=== PATIENT | female | born 1950 | race Caucasian/White ===

== ENCOUNTER 2019-09-24 19:27 | Inpatient (IN) | payer OTHER ==
[2019-09-24 20:03] VITALS: BMI 18.9
--- NOTE | 2019-09-24 20:54 | HP ---
CIWA Score Nausea/Vomitin-Mild Nausea/No Vomiting Muscle Tremors: 2 Anxiety: 3 Agitation: 2 Paroxysmal Sweats: 2 Orientation: 1-Uncertain about Date Tacttile Disturbances: 0-None Auditory Disturbances: 0-None Visual Disturbances: 0-None Headache: 2-Mild CIWA-Ar Total Score: 13 - Admission Criteria OASAS Guidelines: Admission for Medically Managed Detox: Requires at least one of the followin. CIWA greater than 12 2. Seizures within the past 24 hours 3. Delirium tremens within the past 24 hours 4. Hallucinations within the past 24 hours 5. Acute intervention needed for co occurring medical disorder 6. Acute intervention needed for co occurring psychiatric disorder 7. Severe withdrawal that cannot be handled at a lower level of care (continued vomiting, continued diarrhea, abnormal vital signs) requiring intravenous medication and/or fluids 8. Admitting History and Physical - Primary Care Physician PCP: none - Admission Chief Complaint: "I'm here for alcohol detox" History of Present Illness: A 68year old female who denies any medical history, was brought from [facility] to [facility] for alcohol detox. Pt states she drinks vodka 1/2 a pint daily but did not drink it today. Pt is mildly tremulous in b/l hands. Unable to other labs as pt had labs at [facility]. History Source: Patient Limitations to Obtaining History: No Limitations - Smoking History Smoking history: Former smoker Have you smoked in the past 12 months: No If you are a former smoker, when did you quit?: 17years ago - Alcohol/Substance Use Hx Alcohol Use: Yes History of Substance Use: reports: None - Social History Usual Living Arrangement: Yes: With Significant Other Do you think of yourself as: Straight/Heterosexual ADL: Independent History of Recent Travel: No Admission [facility] Allergies/Adverse Reactions: Allergies Allergy/AdvReac Type Severity Reaction Status Date / Time No Known Allergies Allergy Verified 09/24/19 19:55 Exam Limitations: No Limitations - Ebola screening Have you traveled outside of the country in the last 21 days: No (N) Have you had contact with anyone from an Ebola affected area: No Have you been sick,other than usual withdrawal symptoms: No Do you have a fever: No - Review of Systems Constitutional: Loss of Appetite, Night Sweats EENT: reports: Other (Uses eye glasses for reading/sight) Respiratory: reports: No Symptoms reported Cardiac: reports: No Symptoms Reported GI: reports: Nausea : reports: No Symptoms Reported Musculoskeletal: reports: No Symptoms Reported Integumentary: reports: No Symptoms Reported Neuro: reports: Headache, Tremors Endocrine: reports: No Symptoms Reported Hematology: reports: No Symptoms Reported Psychiatric: reports: No Sypmtoms Reported, Mood/Affect Appropiate Other Systems: Reviewed and Negative Patient History - Patient Medical History Hx Anemia: No Hx Asthma: No Hx Chronic Obstructive Pulmonary Disease (COPD): No Hx Cancer: No Hx Cardiac Disorders: No Hx Congestive Heart Failure: No Hx Hypertension: No Hx Hypercholesterolemia: No Hx Pacemaker: No HX Cerebrovascular Accident: No Hx Seizures: No Hx Dementia: No Hx Diabetes: No Hx Gastrointestinal Disorders: No Hx Liver Disease: No Hx Genitourinary Disorders: No Hx Sexually Transmitted Disorders: No Hx Renal Disease (ESRD): No Hx Thyroid Disease: No Hx Hepatitis C: No Hx Depression: No Hx Suicide Attempt: No Hx Bipolar Disorder: No Hx Schizophrenia: No - Patient Surgical History Past Surgical History: Yes Hx Abdominal Surgery: Yes (43years ago.) - PPD History Previous Implant?: Yes (pt states, she had one long time ago) Documented Results: Negative w/o proof PPD to be Administered?: Yes - Reproductive History Patient is a Female of Child Bearing Age (11 -55 yrs old): No - Smoking Cessation Smoking history: Former smoker Have you smoked in the past 12 months: No Hx Chewing Tobacco Use: No Initiated information on smoking cessation: No - Substance & Tx. History Hx Alcohol Use: Yes Hx Substance Use: No Substance Use Type: Alcohol - Substances abused Alcohol Substance route: Oral Frequency: Daily Amount used: half a pint of vodka Age of first use: 25 Date of last use: 09/23/19 Admission Physical Exam [facility] - Vital Signs Vital Signs: Vital Signs - 24 hr 09/24/19 19:54 Temperature 98.9 F Pulse Rate 109 H Respiratory 16 Rate Blood Pressure 160/104 H - Physical General Appearance: Yes: No Apparent Distress, Tremorous, Irritable, Sweating, Anxious HEENTM: Yes: EOMI, Hearing grossly Normal, Normal ENT Inspection, Normocephalic , Normal Voice, NITZA Respiratory: Yes: Chest Non-Tender, Lungs Clear, Normal Breath Sounds, No Respiratory Distress, No Accessory Muscle Use Breast: Yes: Breast Exam Deferred Cardiology: Yes: Regular Rhythm, Regular Rate, S1, S2 Abdominal: Yes: Normal Bowel Sounds, Non Tender, Soft Genitourinary: Yes: Within Normal Limits Musculoskeletal: Yes: full range of Motion, Other (Ambulates with a walker.) Extremities: Yes: Normal Capillary Refill, Normal Inspection, Normal Range of Motion, Non-Tender, Tremors Neurological: Yes: Within Normal Limits, Alert, Normal Mood/Affect, Normal Response Integumentary: Yes: Normal Color, Dry, Warm Lymphatic: Yes: Within Normal Limits - Diagnostic (1) Alcohol abuse Current Visit: Yes Status: Acute (2) Alcohol use disorder, mild, abuse Current Visit: Yes Status: Acute Cleared for Admission S - Detox or Rehab [facility] Level of Care: Medically Managed Detox Regimen/Protocol: Librium Claeared for Rehab Admission: No Breathalyzer - Breathalyzer Breathalyzer: 0 Urine Drug Screen - Test Device Lot number: [id number] Expiration date: 05/05/21 - Control Is test valid?: Yes - Results Drug screen NEGATIVE: No Urine drug screen results: BZO-Benzodiazepines Inpatient Rehab Admission - Rehab Decision to Admit Inpatient rehab admission?: No
[2019-09-24] MEDS ORDERED: METHOCARBAMOL 500 MG TABLET PO PRN (21:12)
[2019-09-24] MEDS ORDERED: MAGNESIUM CITRATE 300 ML BOTTLE PO PRN (21:12)
[2019-09-24] MEDS ORDERED: MAG HYDROX/AL HYDROX/SIMETH 30 ML UNIT-DOSE CUP PO PRN (21:12)
[2019-09-24] MEDS ORDERED: MENTHOL/PHENOL 1 EACH UD MM PRN (21:12)
[2019-09-24] MEDS ORDERED: ACETAMINOPHEN 325 MG TABLET (FP) PO PRN (21:12)
[2019-09-24] MEDS ORDERED: MAGNESIUM HYDROX 2400MG/30ML ORAL SUSPENSION 30 ML CUP PO PRN (21:12)
[2019-09-24] MEDS ORDERED: BISMUTH SUBSALICYLATE 524 MG/30 ML UD PO PRN (21:12)
[2019-09-24] MEDS ORDERED: ONDANSETRON *ODT* 4 MG TABLET SL PRN (21:12)
[2019-09-24] MEDS ORDERED: IBUPROFEN 400 MG TABLET (FP) PO PRN (21:12)
[2019-09-24] MEDS ORDERED: chlordiazePOXIDE HCL 10 MG CAPSULE PO PRN (21:24)
[2019-09-24] MEDS ORDERED: cloNIDine HCL 0.1 MG TABLET PO ONE (21:29)
[2019-09-24] MEDS: chlordiazePOXIDE HCL 25 MG CAPSULE PO SCH (22:30)
[2019-09-24] MEDS: THIAMINE HCL 100 MG TABLET (FP) PO SCH (22:31)
[2019-09-25] MEDS: chlordiazePOXIDE HCL 25 MG CAPSULE PO SCH ×3 (06:12→21:20)
[2019-09-25] MEDS: PRENATAL VITAMINS W/ FOLIC ACID TABLET (FP) PO SCH (11:18)
--- NOTE | 2019-09-25 13:35 | PN ---
S CIWA - CIWA Score Nausea/Vomitin-No Nausea/No Vomiting Muscle Tremors: 3 Anxiety: 3 Agitation: 3 Paroxysmal Sweats: 2 Orientation: 0-Oriented Tacttile Disturbances: 0-None Auditory Disturbances: 0-None Visual Disturbances: 0-None Headache: 0-None Present CIWA-Ar Total Score: 11 S Progress Note (SOAP) Subjective: anxiety sweats shakes interrupted sleep Objective: 09/25/19 13:33 Vital Signs Temperature 97.9 F 09/25/19 09:57 Pulse Rate 98 H 09/25/19 09:57 Respiratory Rate 18 09/25/19 09:57 Blood Pressure 113/82 09/25/19 09:57 O2 Sat by Pulse Oximetry (%) Laboratory Tests 09/24/19 21:50 POC Urine HCG, Qual Negative labs ordered aaox3 ambulating no acute distress Assessment: 09/25/19 13:34 withdrawals Plan: continue detox increase fluids
[2019-09-25] MEDS: hydrOXYzine PAMOATE 25 MG CAPSULE (FP) PO PRN (18:36)
[2019-09-25] MEDS: MELATONIN 5 MG TABLETS PO PRN (21:21)
[2019-09-25] MEDS: THIAMINE HCL 100 MG TABLET (FP) PO SCH (22:05)
[2019-09-26] MEDS: chlordiazePOXIDE 5 MG CAPSULE PO SCH ×3 (05:55→21:56)
[2019-09-26 09:29] LABS: BASO % 1.2 % (0-2.0); EOS % 10.2 % (0-4.5); HEMOGLOBIN 9.6 GM/dL (10.7-15.3); LYMPH % 19.9 % (8-40); MCH 30.6 pg (25.7-33.7); MCHC 33.3 g/dl (32.0-36.0); MEAN CELL VOLUME 91.8 fl (80-96); MEAN PLT VOLUME 7.6 fl (7.5-11.1); MONO % 13.3 % (3.8-10.2); NEUT % 55.4 % (42.8-82.8); PLATELET COUNT 228 K/MM3 (134-434); RBC 3.15 M/mm3 (3.60-5.2); RDW 15.7 % (11.6-15.6); WHITE BLOOD COUNT 4.2 K/mm3 (4.0-10.0)
[2019-09-26] MEDS: PRENATAL VITAMINS W/ FOLIC ACID TABLET (FP) PO SCH (10:50)
[2019-09-26 11:00] LABS: ALBUMIN 3.8 g/dl (3.4-5.0); BILIRUBIN,TOTAL 0.5 mg/dL (0.2-1); BLOOD UREA NITROGEN 30.8 mg/dL (7-18); CALCIUM 9.5 mg/dL (8.5-10.1); CREATININE 1.8 mg/dL (0.55-1.3); POTASSIUM 4.5 mmol/L (3.5-5.1); TOT PROT 7.4 g/dl (6.4-8.2)
--- NOTE | 2019-09-26 14:36 | EKG ---
Test Reason : Blood Pressure : / mmHG Vent. Rate : 084 BPM Atrial Rate : 084 BPM P-R Int : 162 ms QRS Dur : 078 ms QT Int : 384 ms P-R-T Axes : 023 -09 011 degrees QTc Int : 453 ms NORMAL SINUS RHYTHM NONSPECIFIC T WAVE ABNORMALITY ABNORMAL ECG NO PREVIOUS ECGS AVAILABLE Confirmed by NAYLA ASENCIO MD ([id number]) on 09/26/2019 2:36:30 PM Referred By: Iain Cunningham Confirmed By:NAYLA ASENCIO MD
--- NOTE | 2019-09-26 15:10 | PN ---
S CIWA - CIWA Score Nausea/Vomitin-Mild Nausea/No Vomiting Muscle Tremors: 2 Anxiety: 1-Mildly Anxious Agitation: 1-Slight > Activity Paroxysmal Sweats: 1-Minimal Palms Moist Orientation: 0-Oriented Tacttile Disturbances: 0-None Auditory Disturbances: 0-None Visual Disturbances: 0-None Headache: 1-Very Mild CIWA-Ar Total Score: 7 BHS Progress Note (SOAP) Subjective: pt here for alcohol detox- says detox is OK O: Vital Signs - 24 hr 09/25/19 09/25/19 09/26/19 18:25 21:08 00:30 Temperature 98.2 F 98.2 F Pulse Rate 100 H 92 H Respiratory 18 16 18 Rate Blood Pressure 117/64 115/74 09/26/19 09/26/19 09/26/19 08:13 11:01 14:00 Temperature 97.7 F 97.9 F 97.1 F L Pulse Rate 99 H 91 H 81 Respiratory 20 16 16 Rate Blood Pressure 112/77 99/69 120/76 Laboratory Tests 09/24/19 09/26/19 09/26/19 21:50 07:40 07:40 WBC 4.2 RBC 3.15 L Hgb 9.6 L Hct 29.0 L MCV 91.8 MCH 30.6 MCHC 33.3 RDW 15.7 H Plt Count 228 MPV 7.6 Absolute Neuts (auto) 2.3 Neutrophils % 55.4 Lymphocytes % 19.9 Monocytes % 13.3 H Eosinophils % 10.2 H Basophils % 1.2 Nucleated RBC % 0 Sodium Potassium Chloride Carbon Dioxide Anion Gap BUN Creatinine Est GFR (CKD-EPI)AfAm Est GFR (CKD-EPI)NonAf Random Glucose Calcium Total Bilirubin AST ALT Alkaline Phosphatase Total Protein Albumin POC Urine HCG, Qual Negative RPR Titer Nonreactive 09/26/19 07:40 WBC RBC Hgb Hct MCV MCH MCHC RDW Plt Count MPV Absolute Neuts (auto) Neutrophils % Lymphocytes % Monocytes % Eosinophils % Basophils % Nucleated RBC % Sodium 135 L Potassium 4.5 Chloride 98 Carbon Dioxide 28 Anion Gap 9 BUN 30.8 H Creatinine 1.8 H Est GFR (CKD-EPI)AfAm 32.94 Est GFR (CKD-EPI)NonAf 28.42 Random Glucose 91 Calcium 9.5 Total Bilirubin 0.5 AST 42 H ALT 31 Alkaline Phosphatase 86 Total Protein 7.4 Albumin 3.8 POC Urine HCG, Qual RPR Titer anemia, CRF- creatining 1.8 a/p: AUD- detox protocol
[2019-09-26] MEDS: THIAMINE HCL 100 MG TABLET (FP) PO SCH (22:37)
[2019-09-26] MEDS: MELATONIN 5 MG TABLETS PO PRN (22:37)
[2019-09-27] MEDS: chlordiazePOXIDE HCL 10 MG CAPSULE PO SCH ×3 (06:01→22:36)
[2019-09-27] MEDS: PRENATAL VITAMINS W/ FOLIC ACID TABLET (FP) PO SCH (11:03)
--- NOTE | 2019-09-27 14:07 | PN ---
S CIWA - CIWA Score Nausea/Vomitin-No Nausea/No Vomiting Muscle Tremors: None Anxiety: 2 Agitation: 0-Normal Activity Paroxysmal Sweats: 2 Orientation: 0-Oriented Tacttile Disturbances: 0-None Auditory Disturbances: 0-None Visual Disturbances: 0-None Headache: 0-None Present CIWA-Ar Total Score: 4 BHS Progress Note (SOAP) Subjective: c/o mild withdrawal symptoms. Objective: 09/27/19 14:06 Vital Signs 09/27/19 09/27/19 06:46 10:18 Temperature 97.9 F 99 F Pulse Rate 73 93 H Respiratory 18 18 Rate Blood Pressure 103/58 L 111/75 Laboratory Last Values WBC 4.2 K/mm3 (4.0-10.0) 09/26/19 07:40 RBC 3.15 M/mm3 (3.60-5.2) L 09/26/19 07:40 Hgb 9.6 GM/dL (10.7-15.3) L 09/26/19 07:40 Hct 29.0 % (32.4-45.2) L 09/26/19 07:40 MCV 91.8 fl (80-96) 09/26/19 07:40 MCH 30.6 pg (25.7-33.7) 09/26/19 07:40 MCHC 33.3 g/dl (32.0-36.0) 09/26/19 07:40 RDW 15.7 % (11.6-15.6) H 09/26/19 07:40 Plt Count 228 K/MM3 (134-434) 09/26/19 07:40 MPV 7.6 fl (7.5-11.1) 09/26/19 07:40 Absolute Neuts (auto) 2.3 K/mm3 (1.5-8.0) 09/26/19 07:40 Neutrophils % 55.4 % (42.8-82.8) 09/26/19 07:40 Lymphocytes % 19.9 % (8-40) 09/26/19 07:40 Monocytes % 13.3 % (3.8-10.2) H 09/26/19 07:40 Eosinophils % 10.2 % (0-4.5) H 09/26/19 07:40 Basophils % 1.2 % (0-2.0) 09/26/19 07:40 Nucleated RBC % 0 % (0-0) 09/26/19 07:40 Sodium 135 mmol/L (136-145) L 09/26/19 07:40 Potassium 4.5 mmol/L (3.5-5.1) 09/26/19 07:40 Chloride 98 mmol/L (98-107) 09/26/19 07:40 Carbon Dioxide 28 mmol/L (21-32) 09/26/19 07:40 Anion Gap 9 MMOL/L (8-16) 09/26/19 07:40 BUN 30.8 mg/dL (7-18) H 09/26/19 07:40 Creatinine 1.8 mg/dL (0.55-1.3) H 09/26/19 07:40 Est GFR (CKD-EPI)AfAm 32.94 09/26/19 07:40 Est GFR (CKD-EPI)NonAf 28.42 09/26/19 07:40 Random Glucose 91 mg/dL (74-106) 09/26/19 07:40 Calcium 9.5 mg/dL (8.5-10.1) 09/26/19 07:40 Total Bilirubin 0.5 mg/dL (0.2-1) 09/26/19 07:40 AST 42 U/L (15-37) H 09/26/19 07:40 ALT 31 U/L (13-61) 09/26/19 07:40 Alkaline Phosphatase 86 U/L (45-117) 09/26/19 07:40 Total Protein 7.4 g/dl (6.4-8.2) 09/26/19 07:40 Albumin 3.8 g/dl (3.4-5.0) 09/26/19 07:40 POC Urine HCG, Qual Negative 09/24/19 21:50 RPR Titer Nonreactive (NONREACTIVE) 09/26/19 07:40 Labs noted. Assessment: 09/27/19 14:06 AOX3, in no acute respiratory distress. Full ROM, ambulating in the unit. Mild Withdrawal symptoms. For d/c tomorrow. Plan: Continue dotox. D/C in AM.
[2019-09-27] MEDS ORDERED: ACETAMINOPHEN 325 MG TABLET (FP) PO PRN (17:07)
[2019-09-27] MEDS: hydrOXYzine PAMOATE 25 MG CAPSULE (FP) PO PRN (17:08)
[2019-09-27] MEDS: THIAMINE HCL 100 MG TABLET (FP) PO SCH (22:35)
[2019-09-28] MEDS ORDERED: chlordiazePOXIDE HCL 10 MG CAPSULE PO ONE (05:00)
--- NOTE | 2019-09-28 09:24 | DS ---
[facility] Detox Discharge Summary Admission Date: 09/24/19 Discharge Date: 09/28/19 - History Present History: Alcohol Dependence - Physical Exam Results Vital Signs: Vital Signs Temperature 97.7 F 09/28/19 05:25 Pulse Rate 88 09/28/19 05:25 Respiratory Rate 16 09/28/19 05:25 Blood Pressure 127/89 09/28/19 05:25 O2 Sat by Pulse Oximetry (%) - Treatment Hospital Course: Detox Protocol Followed, Detoxed Safely, Responded well, Discharged Condition Good, Rehab Referral Accepted Patient has Accepted a Rehab Referral to: referred to [facility] ot - Medication Discharge Medications: Ambulatory Orders NK [No Known Home Medication] 09/24/19 - Diagnosis (1) Alcohol use disorder, mild, abuse Current Visit: Yes Status: Chronic - AMA Did Patient Leave Against Medical Advice: No
[2019-09-28 09:31] VITALS: BP 113/73; PULSE 99; TEMP 97.6
[2019-09-28] MEDS: PRENATAL VITAMINS W/ FOLIC ACID TABLET (FP) PO SCH (10:22)
== END 2019-09-28 12:56 | disposition home or self-care (01) | DRG 897 ==
LOC: YASAS 19:27 → Y6N 21:46
PROVIDERS: ADMIT Allergy & Immunology; ATTEND Allergy & Immunology
PROC: HZ2ZZZZ Detoxification Services for Substance Abuse Treatment (ICD-10-PCS; principal; 2019-09-24)
DX: F10.230 Alcohol dependence with withdrawal, uncomplicated (principal); D64.9 Anemia, unspecified; N18.9 Chronic kidney disease, unspecified; Z87.891 Personal history of nicotine dependence
CPT/HCPCS: 36415; 80053; 81025; 85025; 86593; 93005; 93010; J0735

== ENCOUNTER 2019-10-09 15:20 | Inpatient (IN) | payer OTHER ==
[2019-10-09 16:30] VITALS: BMI 19.6
--- NOTE | 2019-10-09 17:12 | HP ---
CIWA Score Nausea/Vomitin-Mild Nausea/No Vomiting Muscle Tremors: 4-Moderate,w/Arms Extend Anxiety: 1-Mildly Anxious Agitation: 0-Normal Activity Paroxysmal Sweats: No Perspiration Orientation: 3-Disoriented Date>2 days Tacttile Disturbances: 0-None Auditory Disturbances: 0-None Visual Disturbances: 0-None Headache: 0-None Present CIWA-Ar Total Score: 9 - Admission Criteria OASAS Guidelines: Admission for Medically Managed Detox: Requires at least one of the followin. CIWA greater than 12 2. Seizures within the past 24 hours 3. Delirium tremens within the past 24 hours 4. Hallucinations within the past 24 hours 5. Acute intervention needed for co occurring medical disorder 6. Acute intervention needed for co occurring psychiatric disorder 7. Severe withdrawal that cannot be handled at a lower level of care (continued vomiting, continued diarrhea, abnormal vital signs) requiring intravenous medication and/or fluids 8. Patient presents the following: Acute intervention needed for co-occurring med or psych disorder (B/P: 172/103; 169/101) Admission Criteria Met: Admission criteria met Admitting History and Physical - Smoking History Smoking history: Former smoker Have you smoked in the past 12 months: No If you are a former smoker, when did you quit?: 17years ago - Alcohol/Substance Use Hx Alcohol Use: Yes History of Substance Use: reports: None - Social History ADL: Independent History of Recent Travel: No Admission [facility] Chief Complaint: Here to stop drinking. Allergies/Adverse Reactions: Allergies Allergy/AdvReac Type Severity Reaction Status Date / Time No Known Allergies Allergy Verified 10/09/19 16:15 History of Present Illness: 68 yo presents w/ alcohol use withdrawal seeking detox. Discharged on 09/28/19. States relapsed as soon as left. Frequent falls. Last 2 days ago. States r/t alcohol use. Alcohol use began at age 23. Currently drinks 1/2-1 pint daily. Last drink 2 days ago. PMHx: Denies HTN. EK/19: NSR w/nonspecific T wave abnormality. (Denies cocaine use.) RPR: 09/26: Nonreactive MMHx: Denies depression. Denies thoughts of harming self or others. Shx: Domiciled w/ . Retired. Denies legal issues. Patient Name: Lizzy Rankin Date: 1950 Address: [address] [place] [address] Sex: Female Rx Written Rx Dispensed Drug Quantity Days Supply Prescriber Name 09/02/2019 09/11/2019 chlordiazepoxide 25 mg capsule 9 3 Lali Alvarez Exam Limitations: No Limitations - Ebola screening Have you traveled outside of the country in the last 21 days: No Have you had contact with anyone from an Ebola affected area: No Have you been sick,other than usual withdrawal symptoms: Yes Do you have a fever: No - Review of Systems Constitutional: Unintentional Wgt. Loss EENT: reports: Blurred Vision, Dental Problems (Missing upper teeth. Chews and swallows ok) Respiratory: reports: No Symptoms reported Cardiac: reports: No Symptoms Reported GI: reports: Constipated (BM today - hard brown. No blood), Nausea : reports: No Symptoms Reported Musculoskeletal: reports: No Symptoms Reported Integumentary: reports: No Symptoms Reported Neuro: reports: Dizziness (Intermittent. Uses walker.) Endocrine: reports: No Symptoms Reported Hematology: reports: Anemia (Low iron) Psychiatric: reports: Anxious, Disorientated (Unsue of date/year/month. Knows self, president, location) Patient History - Patient Medical History Hx Anemia: No Hx Asthma: No Hx Chronic Obstructive Pulmonary Disease (COPD): No Hx Cancer: No Hx Cardiac Disorders: No Hx Congestive Heart Failure: No Hx Hypertension: No Hx Hypercholesterolemia: No Hx Pacemaker: No HX Cerebrovascular Accident: No Hx Seizures: No Hx Dementia: No Hx Diabetes: No Hx Gastrointestinal Disorders: No Hx Liver Disease: No Hx Genitourinary Disorders: No Hx Sexually Transmitted Disorders: No Hx Renal Disease (ESRD): No Hx Thyroid Disease: No Hx Hepatitis C: No Hx Depression: No Hx Suicide Attempt: No Hx Bipolar Disorder: No Hx Schizophrenia: No - Patient Surgical History Past Surgical History: Yes Hx Abdominal Surgery: Yes (43years ago.) - PPD History Previous Implant?: Yes Documented Results: Negative w/proof Implanted On Prior [facility] Admission?: Yes Date: 09/26/19 PPD to be Administered?: No - Smoking Cessation Smoking history: Former smoker Have you smoked in the past 12 months: No If you are a former smoker, when did you quit?: 17years ago Hx Chewing Tobacco Use: No Initiated information on smoking cessation: No - Substances abused Alcohol Substance route: Oral Frequency: Daily Amount used: half a pint of vodka Age of first use: 25 Date of last use: 10/07/19 Admission Physical Exam [facility] - Vital Signs Vital Signs: Vital Signs - 24 hr 10/09/19 16:15 Temperature 98.7 F Pulse Rate 100 H Respiratory 16 Rate Blood Pressure 169/101 H - Physical General Appearance: Yes: Mild Distress, Thin, Tremorous, Anxious HEENTM: Yes: EOMI, Hearing grossly Normal, Normocephalic, Normal Voice, NITZA, Pharynx Normal Respiratory: Yes: Lungs Clear (Pulse Ox = 98 %), Normal Breath Sounds, No Respiratory Distress Neck: Yes: No masses,lesions,Nodules, Supple Breast: Yes: Breast Exam Deferred Cardiology: Yes: Regular Rhythm, S1, S2, Tachycardia (HR: 106) Abdominal: Yes: Non Tender, Flat, Soft, Increased Bowel Sounds Genitourinary: Yes: Within Normal Limits Back: Yes: Within Normal Limits Musculoskeletal: Yes: full range of Motion, Gait Steady (with use of walker) Extremities: Yes: Normal Capillary Refill, Other (Periph pulses +; no edema) Neurological: Yes: trade marker II-XII NML intact, Motor Strength 5/5, Disoriented Integumentary: Yes: Normal Color, Dry, Warm Lymphatic: Yes: Within Normal Limits - Diagnostic (1) Alcohol dependence with withdrawal, uncomplicated Current Visit: Yes Status: Acute (2) Hypertension Current Visit: Yes Status: Acute Qualifiers: Hypertension type: unspecified Qualified Code(s): I10 - Essential (primary ) hypertension (3) Dizziness on standing Current Visit: Yes Status: Chronic (4) Walker as ambulation aid Current Visit: Yes Status: Chronic Cleared for Admission [facility] - Detox or Rehab [facility] Level of Care: Medically Managed Detox Regimen/Protocol: Librium Claeared for Rehab Admission: No Breathalyzer - Breathalyzer Breathalyzer: 0 Urine Drug Screen - Test Device Lot number: [id number] Expiration date: 05/06/21 - Control Is test valid?: Yes - Results Drug screen NEGATIVE: No Urine drug screen results: BZO-Benzodiazepines Inpatient Rehab Admission - Rehab Decision to Admit Inpatient rehab admission?: No
[2019-10-09] MEDS ORDERED: chlordiazePOXIDE HCL 10 MG CAPSULE PO ONE (17:49)
[2019-10-09] MEDS ORDERED: ACETAMINOPHEN 325 MG TABLET (FP) PO PRN ×2 (17:49)
[2019-10-09] MEDS ORDERED: BISMUTH SUBSALICYLATE 524 MG/30 ML UD PO PRN (17:49)
[2019-10-09] MEDS ORDERED: MELATONIN 5 MG TABLETS PO PRN (17:49)
[2019-10-09] MEDS ORDERED: IBUPROFEN 400 MG TABLET (FP) PO PRN (17:49)
[2019-10-09] MEDS ORDERED: MAGNESIUM HYDROX 2400MG/30ML ORAL SUSPENSION 30 ML CUP PO PRN (17:49)
[2019-10-09] MEDS ORDERED: MAGNESIUM CITRATE 300 ML BOTTLE PO PRN (17:49)
[2019-10-09] MEDS ORDERED: MENTHOL/PHENOL 1 EACH UD MM PRN (17:49)
[2019-10-09] MEDS ORDERED: chlordiazePOXIDE HCL 10 MG CAPSULE PO PRN (17:49)
[2019-10-09] MEDS ORDERED: MAG HYDROX/AL HYDROX/SIMETH 30 ML UNIT-DOSE CUP PO PRN (17:49)
[2019-10-09] MEDS ORDERED: cloNIDine HCL 0.1 MG TABLET PO ONE (18:30)
[2019-10-09] MEDS ORDERED: chlordiazePOXIDE 5 MG CAPSULE PO PRN (18:31)
[2019-10-09] MEDS ORDERED: THIAMINE HCL 100 MG TABLET (FP) PO SCH (22:00)
[2019-10-09] MEDS: chlordiazePOXIDE 5 MG CAPSULE PO SCH (22:16)
[2019-10-10] MEDS: chlordiazePOXIDE 5 MG CAPSULE PO SCH ×2 (05:54→12:55)
[2019-10-10 09:56] LABS: HEMATOCRIT 30.1 % (32.4-45.2); HEMOGLOBIN 10.1 GM/dL (10.7-15.3); MCH 30.5 pg (25.7-33.7); MCHC 33.4 g/dl (32.0-36.0); MEAN CELL VOLUME 91.2 fl (80-96); MEAN PLT VOLUME 7.7 fl (7.5-11.1); PLATELET COUNT 129 K/MM3 (134-434); WHITE BLOOD COUNT 3.8 K/mm3 (4.0-10.0)
[2019-10-10] MEDS ORDERED: PRENATAL VITAMINS W/ FOLIC ACID TABLET (FP) PO SCH (10:00)
[2019-10-10 10:06] LABS: ALBUMIN 3.9 g/dl (3.4-5.0); BILIRUBIN,TOTAL 0.9 mg/dL (0.2-1); BLOOD UREA NITROGEN 13.2 mg/dL (7-18); CALCIUM 9.2 mg/dL (8.5-10.1); POTASSIUM 3.3 mmol/L (3.5-5.1); TOT PROT 7.9 g/dl (6.4-8.2)
--- NOTE | 2019-10-10 12:29 | PN ---
[facility] CIWA - CIWA Score Nausea/Vomitin-No Nausea/No Vomiting Muscle Tremors: 2 Anxiety: 2 Agitation: 0-Normal Activity Paroxysmal Sweats: 3 Orientation: 0-Oriented Tacttile Disturbances: 1-Very Mild Itch/Numbness Auditory Disturbances: 0-None Visual Disturbances: 0-None Headache: 0-None Present CIWA-Ar Total Score: 8 S Progress Note (SOAP) Subjective: c/o sweats, headache, and anxiety, dizziness, and palpitations. Denies any chest pain, sob, or N/V. Objective: 10/10/19 12:23 Vital Signs 10/10/19 10/10/19 06:30 09:20 Temperature 99.1 F 98.8 F Pulse Rate 82 135 H Respiratory 16 16 Rate Blood Pressure 136/91 124/82 Lab Results WBC 3.8 K/mm3 (4.0-10.0) L 10/10/19 07:20 RBC 3.30 M/mm3 (3.60-5.2) L 10/10/19 07:20 Hgb 10.1 GM/dL (10.7-15.3) L 10/10/19 07:20 Hct 30.1 % (32.4-45.2) L 10/10/19 07:20 MCV 91.2 fl (80-96) 10/10/19 07:20 MCHC 33.4 g/dl (32.0-36.0) 10/10/19 07:20 RDW 16.0 % (11.6-15.6) H 10/10/19 07:20 Plt Count 129 K/MM3 (134-434) L D 10/10/19 07:20 Sodium 138 mmol/L (136-145) 10/10/19 07:20 Potassium 3.3 mmol/L (3.5-5.1) L 10/10/19 07:20 Chloride 102 mmol/L (98-107) 10/10/19 07:20 Carbon Dioxide 26 mmol/L (21-32) 10/10/19 07:20 Anion Gap 10 MMOL/L (8-16) 10/10/19 07:20 BUN 13.2 mg/dL (7-18) 10/10/19 07:20 Creatinine 1.0 mg/dL (0.55-1.3) 10/10/19 07:20 Random Glucose 106 mg/dL (74-106) 10/10/19 07:20 Calcium 9.2 mg/dL (8.5-10.1) 10/10/19 07:20 Labs noted with low K+ level of 3.3 Assessment: 10/10/19 12:24 AOX3 Full ROM Withdrawal symptoms. Hypokalemia. Tachycardia. HEENTM: EOMI, PERRLA Respiratory: Lungs Clear, Normal Breath Sounds, No Respiratory Distress Cardiology: Regular Rhythm, S1, S2, Tachycardia (HR: 130) Extremities: Normal Capillary Refill, Other (Periph pulses +; no edema) Plan: continue detox. Increase fluids. Potassium chloride 40meq po x8mecbb 4hrs apart. Send to [facility] ED for evaluation. Verbal report given to Dr. Petty.
[2019-10-10] MEDS ORDERED: POTASSIUM CHLORIDE TABS 20 MEQ TABLET.ER (FP) PO ONE ×2 (13:00→17:00)
[2019-10-10 13:43] VITALS: BP 152/98; PULSE 102; TEMP 97.6
[2019-10-11] MEDS ORDERED: chlordiazePOXIDE HCL 10 MG CAPSULE PO SCH (05:00)
[2019-10-12] MEDS ORDERED: chlordiazePOXIDE 5 MG CAPSULE PO PRN
[2019-10-12] MEDS ORDERED: chlordiazePOXIDE 5 MG CAPSULE PO SCH (05:00)
[2019-10-13] MEDS ORDERED: chlordiazePOXIDE 5 MG CAPSULE PO ONE (05:00)
== END 2019-10-10 21:29 | disposition short-term general hospital (02) | DRG 897 ==
LOC: YASAS 15:20 → Y3N 18:18
PROVIDERS: ADMIT Allergy & Immunology; ATTEND Allergy & Immunology
PROC: HZ2ZZZZ Detoxification Services for Substance Abuse Treatment (ICD-10-PCS; principal; 2019-10-09)
DX: F10.230 Alcohol dependence with withdrawal, uncomplicated (principal); I10 Essential (primary) hypertension; E87.6 Hypokalemia; R00.0 Tachycardia, unspecified; R29.6 Repeated falls; R26.2 Difficulty in walking, not elsewhere classified; Z99.89 Dependence on other enabling machines and devices; Z87.891 Personal history of nicotine dependence
CPT/HCPCS: 36415; 80053; 85027; J0735

== ENCOUNTER 2019-10-10 13:55 | Observation (INO) | payer SELFPAY ==
--- NOTE | 2019-10-10 14:41 | PDOC ---
Attending Attestation - Resident Resident Name: Domenico Colon - ED Attending Attestation I have performed the following: I have examined & evaluated the patient, The case was reviewed & discussed with the resident, I agree w/resident's findings & plan, Exceptions are as noted - HPI HPI: 10/10/19 14:37 68y F htn, was at [facility] for etoh detox, brought in for evaluation for dizziness/palpitation. The patient notes that on Saturday she was feeling well she was putting away groceries when she suddenly felt lightheaded and syncopized , she was brought to [facility] for evaluation and then discharge to [facility] for alcohol detox. Patient states last time she drank alcohol was on Saturday. While at detox she while she was eating lunch she remembers feeling very lightheaded and her vision darkening. Per [facility] records the patient was immediately evaluated was noted to be tachycardic to 135, with a normal blood sugar. The patient denies any associated pain associated with these syncopal episodes including any headache, chest pain, shortness of breath, abdominal pain , back pain, neck pain, focal numbness, tingling, weakness. Patient denies any fever, chills, cough, diarrhea, melena, dysuria. Physical exam GENERAL: The patient is awake, alert, and fully oriented, Nontoxic - in no acute distress. HEAD: Normocephalic, atraumatic. EYES: extraocular movements intact, sclera anicteric, conjunctiva clear. ENT: Normal voice, Moist mucous membranes. NECK: Normal range of motion, supple LUNGS: Breath sounds equal, clear to auscultation bilaterally. No wheezes, no rhonchi, no rales. HEART: Regular rate and rhythm, normal S1 and S2 without murmur, rub or gallop. ABDOMEN: Soft, nontender, No guarding, no rebound. No CVA tenderness EXTREMITIES: Normal range of motion, no edema. NEUROLOGICAL: No facial assymetry, Normal speech, normal symmetric movement of upper and lower extremities, sensation grossly intact PSYCH: Normal mood, normal affect. SKIN: Warm, Dry, normal turgor, a&p 68y F hx of htn, etoh abuse presents with complaint presyncope/syncope x 2 ddx includes possible anemia, metabolic derangement, arryuthmia, acs will ck labs, cxr, ua,e kg will place pt on cardaic monitor due to syncope x 2, will keep pt for observation syncope, will obtain echo - Physicial Exam PE: 10/12/19 19:20 see above - Medical Decision Making 10/12/19 19:20 see above Heart Score/ECG Review - ECG Impressions Comment:: 10/10/19 15:11 Twelve-lead EKG was performed and reviewed by me. There is normal sinus rhythm with a heart rate of 93 The axis is normal. The intervals are normal. There is normal R wave progression There are no ST or T wave abnormalities. Impression: Normal twelve-lead EKG
[2019-10-10] MEDS ORDERED: SODIUM CHLORIDE 1,000 ML IV ONE (14:51)
--- NOTE | 2019-10-10 15:10 | PDOC ---
History of Present Illness - General Chief Complaint: Irregular Heart Beat Stated Complaint: PALPITATIONS Time Seen by Provider: 10/10/19 14:01 - History of Present Illness Initial Comments: 10/10/19 23:50 68F PMH HTN BIBEMS from [facility] for an episode of lightheadedness and visual darkening while eating. Episode lasted about 5 seconds and resolved, associated w/ nausea. Pt currently asymptomatic w/o visual changes or hearing changes. Denies chest pain, palpitations, sob, f/c, cough, abd pain. Denies numbness, tingling, focal weakness. Pt has had a similar episode on Saturday where she syncopized and was eval'd at [facility]. Subsequently sent to [facility] for etoh detox, last drink Saturday, currently on librium. NKDA No PCP Pt lives at home in the [place] Former smoker, denies drug use Past History - Past Medical History Allergies/Adverse Reactions: Allergies Allergy/AdvReac Type Severity Reaction Status Date / Time No Known Allergies Allergy Verified 10/10/19 14:16 Home Medications: Ambulatory Orders NK [No Known Home Medication] 09/24/19 Anemia: No Asthma: No Cancer: No Cardiac Disorders: No CVA: No COPD: No CHF: No Dementia: No Diabetes: No GI Disorders: No Disorders: No HTN: No Hypercholesterolemia: No Kidney Stones: No Liver Disease: No Seizures: No Thyroid Disease: No - Surgical History Abdominal Surgery: Yes (43years ago.) Appendectomy: No Cardiac Surgery: No Cholecystectomy: No Lung Surgery: No Neurologic Surgery: No Orthopedic Surgery: No - Immunization History Immunization Up to Date: Yes - Psycho Social/Smoking Cessation Hx Smoking History: Former smoker Have you smoked in the past 12 months: No If you are a former smoker, when did you quit?: 17 yrs Information on smoking cessation initiated: No Hx Alcohol Use: Yes Drug/Substance Use Hx: No Substance Use Type: Alcohol Hx Substance Use Treatment: No Review of Systems - Review of Systems Able to Perform ROS?: Yes Comments:: 10/10/19 23:50 CONSTITUTIONAL: Denies F / C HEENT: Endorses lightheadedness. Denies headache, changes in vision / hearing, diplopia, blurry vision RESP: Denies SOB, cough CARD: Denies chest pain, palpitations GI: Endorsed since resolved nausea. Denies V / D, abdominal pain, bloody stool, inability to tolerate PO : Denies dysuria, hematuria, frequency SKIN: Denies rashes NEURO: Denies numbness, tingling, weakness Is the patient limited Upper Sorbian proficient: No *Physical Exam - Vital Signs Last Vital Signs Temp Pulse Resp BP Pulse Ox 97.4 F L 95 H 18 148/87 100 10/10/19 14:11 10/10/19 14:11 10/10/19 14:11 10/10/19 14:11 10/10/19 14:11 - Physical Exam 10/10/19 23:50 GEN: Well appearing, NAD, comfortable. AAOx3 HEENT: NC/AT, CN II-XII grossly intact, EOMI, PERRLA. No facial asymmetry. Moist mucous membranes. Normal voice. Supple neck w/ FROM, no midline TTP. CV: S1/S2, RRR, no m/r/g LUNG: CTAB, no wheezes, crackles, rales, rhonchi. GI: soft, ndnt, +BS, no guarding, no rebound. No masses. EXTREMITIES: No obvious deformities of all extremities. SKIN: warm, dry, normal turgor PSYCH: normal mood and affect NEURO: Moving all extremities well. 5/5 UE strength b/l. 5/5 LE strength b/l. Sensation symmetric and intact throughout. No ataxia on FTN. No pronator drift. BACK: No obvious deformities, no step offs, no midline TTP. There is no pelvic instability. No signs of trauma. ED Treatment Course - LABORATORY CBC & Chemistry Diagram: 10/10/19 14:57 10/10/19 14:57 Medical Decision Making - Medical Decision Making 10/10/19 14:54 68F PMH HTN BIBEMS from [facility] (etoh detox) for lightheadedness and visual darkening w/o syncope. ROS largely negative. Benign exam. Likely pre-syncope will w/o arrhythmia, lytes, anemia - cbc, cmp, cardiac - ekg - cxr - echo Pt had CBC in AM w/o anemia 10/10/19 16:50 labs reviewed CXR by ED team appears w/o acute pathology given 2 recent episodes of syncope / near-syncope would like to keep for further workup tele-obs 10/10/19 16:57 admitted tele-obs 10/10/19 17:27 spoke to [facility] ED - pt was in ED on 10/08/18, agitated given ativan discharged to [facility], no echo was obtained, discharged 10/09/18. Discharge - Discharge Information Problems reviewed: Yes Clinical Impression/Diagnosis: Syncope Qualifiers: Syncope type: unspecified Qualified Code(s): R55 - Syncope and collapse Condition: Stable - Admission Yes - Follow up/Referral - Patient Discharge Instructions - Post Discharge Activity
[2019-10-10 15:21] LABS: BASO % 0.6 % (0-2.0); HEMATOCRIT 29.4 % (32.4-45.2); HEMOGLOBIN 9.9 GM/dL (10.7-15.3); LYMPH % 10.6 % (8-40); MCH 30.2 pg (25.7-33.7); MCHC 33.6 g/dl (32.0-36.0); MEAN CELL VOLUME 90.1 fl (80-96); MEAN PLT VOLUME 7.4 fl (7.5-11.1); MONO % 7.7 % (3.8-10.2); NEUT % 76.1 % (42.8-82.8); PLATELET COUNT 133 K/MM3 (134-434); RBC 3.26 M/mm3 (3.60-5.2); RDW 15.8 % (11.6-15.6); WHITE BLOOD COUNT 5.9 K/mm3 (4.0-10.0)
[2019-10-10 15:52] LABS: ALBUMIN 4.2 g/dl (3.4-5.0); BILIRUBIN,TOTAL 0.9 mg/dL (0.2-1); BLOOD UREA NITROGEN 15.4 mg/dL (7-18); CALCIUM 9.5 mg/dL (8.5-10.1); POTASSIUM 3.7 mmol/L (3.5-5.1); TOT PROT 8.2 g/dl (6.4-8.2)
--- NOTE | 2019-10-10 17:31 | HP ---
CHIEF COMPLAINT: Dizziness, palpitations PCP: N/A HISTORY OF PRESENT ILLNESS: Patient is a 68 year old female who denies significant medical history presents from [facility] with complaint of dizziness, palpitations occurring earlier this afternoon. Patient was sitting, about to eat her lunch when she exprienced the symptoms without clear inciting factor. Patient endorses similar symptoms that occurred this past Saturday causing her to fall, and lose consciousness as she was placing groceries into a cabinet at home. At that time she endorsed preceding palpitations, dizziness, shortness of breath, and chest pressure she described as a "punch to the chest". Denies bowl or bladder incontinence. She estimates that she was on the ground for approx 8 minutes, before getting up. Patient states she was taken to [facility]. Per ED sign out, patient was discharged from [facility] yesterday, and did not have syncopal work up performed. Patient admits the symptoms of dizziness ongoing for the past two months. Denies palliative features. Currently states she feels well. Currently denies chest pain, palpitations, abdominal pain, nausea, vomiting, diarrhea, melena, hematochezia, dysuria, hematuria. ER course was notable for: (1) EKG normal sinus rhythm at 93BPM. Initial troponin 0,02 (2) Chest radiograph negative for acute infiltrate (3) Recent Travel: denies PAST MEDICAL HISTORY: denies PAST SURGICAL HISTORY: section Social History: Smoking: Former smoker, quit 17 years ago Alcohol: admits 0.5 pint of Vodka daily Drugs: denies Allergies No Known Allergies Allergy (Verified 10/10/19 14:16) HOME MEDICATIONS: Home Medications Medication Instructions Recorded NK [No Known Home Medication] 09/24/19 REVIEW OF SYSTEMS CONSTITUTIONAL: Absent: fever, chills, diaphoresis, generalized weakness, malaise, loss of appetite, weight change HEENT: Absent: rhinorrhea, nasal congestion, throat pain, throat swelling, difficulty swallowing, mouth swelling, ear pain, eye pain, visual changes CARDIOVASCULAR: Admits: chest pressure (resolved), palpitations, lightheadedness (improving). Absent: chest pain, syncope, palpitations, irregular heart rate, lightheadedness , peripheral edema RESPIRATORY: Admits: shortness of breath (improving). Absent: cough, dyspnea with exertion, orthopnea, wheezing, stridor, hemoptysis GASTROINTESTINAL: Absent: abdominal pain, abdominal distension, nausea, vomiting, diarrhea, constipation, melena, hematochezia GENITOURINARY: Absent: dysuria, frequency, urgency, hesitancy, hematuria, flank pain, genital pain MUSCULOSKELETAL: Absent: myalgia, arthralgia, joint swelling, back pain, neck pain SKIN: Absent: rash, itching, pallor HEMATOLOGIC/IMMUNOLOGIC: Absent: easy bleeding, easy bruising, lymphadenopathy, frequent infections ENDOCRINE: Absent: unexplained weight gain, unexplained weight loss, heat intolerance, cold intolerance NEUROLOGIC: Absent: headache, focal weakness or paresthesias, dizziness, unsteady gait, seizure, mental status changes, bladder or bowel incontinence PSYCHIATRIC: Absent: anxiety, depression, suicidal or homicidal ideation, hallucinations. PHYSICAL EXAMINATION Vital Signs - 24 hr 10/10/19 10/10/19 14:11 15:40 Temperature 97.4 F L Pulse Rate 95 H Respiratory 18 Rate Blood Pressure 148/87 O2 Sat by Pulse 100 98 Oximetry (%) GENERAL: Awake, alert, and fully oriented, in no acute distress. HEAD: Normal with no signs of trauma. EYES: Pupils equal, round and reactive to light, extraocular movements intact, sclera anicteric, conjunctiva clear. No lid lag. EARS, NOSE, THROAT: Ears normal, nares patent, oropharynx clear without exudates. Moist mucous membranes. NECK: Normal range of motion, supple without lymphadenopathy, JVD, or masses. LUNGS: Breath sounds equal, clear to auscultation bilaterally. No wheezes, and no crackles. No accessory muscle use. HEART: Regular rate and rhythm, normal S1 and S2 without murmur, rub or gallop. ABDOMEN: Soft, nontender, not distended, normoactive bowel sounds, no guarding, no rebound, no masses. No hepatomegaly or splenomegaly. MUSCULOSKELETAL: Normal range of motion at all joints. No bony deformities or tenderness. No CVA tenderness. UPPER EXTREMITIES: 2+ pulses, warm, well-perfused. No cyanosis. No clubbing. No peripheral edema. LOWER EXTREMITIES: 2+ pulses, warm, well-perfused. No calf tenderness. No peripheral edema. NEUROLOGICAL: Cranial nerves II-XII intact. Normal speech. Normal gait. PSYCHIATRIC: Cooperative. Good eye contact. Appropriate mood and affect. SKIN: Warm, dry, normal turgor, no rashes or lesions noted, normal capillary refill. Laboratory Results - last 24 hr 10/10/19 10/10/19 10/10/19 14:57 14:57 14:57 WBC 5.9 RBC 3.26 L Hgb 9.9 L Hct 29.4 L MCV 90.1 MCH 30.2 MCHC 33.6 RDW 15.8 H Plt Count 133 L MPV 7.4 L Absolute Neuts (auto) 4.5 Neutrophils % 76.1 D Lymphocytes % 10.6 D Monocytes % 7.7 Eosinophils % 5.0 H Basophils % 0.6 Nucleated RBC % 0 Sodium 137 Potassium 3.7 Chloride 102 Carbon Dioxide 27 Anion Gap 7 L BUN 15.4 Creatinine 1.0 Est GFR (CKD-EPI)AfAm 67.04 Est GFR (CKD-EPI)NonAf 57.84 Random Glucose 102 Calcium 9.5 Total Bilirubin 0.9 AST 46 H ALT 29 Alkaline Phosphatase 104 Creatine Kinase 121 Troponin I < 0.02 Total Protein 8.2 Albumin 4.2 ASSESSMENT/PLAN: Patient is a 68 year old female who denies significant medical history presents from [facility] with complaint of dizziness, palpitations occurring earlier this afternoon. Pre-syncopal episode -Dizziness, palpitations ongoing for past two months. Denies fall today (no trauma documented per [facility] facility notes). Neurologic exam nonfocal. -Telemetry monitoring -EKG reveals normal sinus rhythm at 93BPM. Initial troponin 0,02 -Cardiology evaluation (Dr. Conroy) -STAT orthostatic vital signs -Cardiac transthoracic ECHO -Carotid duplex ultrasound -Fall precautions Alcohol use disorder -Endorses last alcoholic drink Saturday. Currently CIWA = 0. -Will monitor off benzodiazepines for now. If CIWA > 6 will administer Ativan 2mg IV, and reinstate Librium protocol. -Thiamine 100mg PO daily -Folic Acid 1mg PO daily -Multivitamin daily -IV normal saline with Folate, Thiamine FEN -IV normal saline with Folate, Thiamine at 125mL/ hour -Follow BMP -Regular diet Prophylaxis -Lovenox 40mg subq daily Disposition -Telemetry observation Visit type - Emergency Visit Emergency Visit: Yes ED Registration Date: 10/10/19 Care time: The patient presented to the Emergency Department on the above date and was hospitalized for further evaluation of their emergent condition. - New Patient This patient is new to me today: Yes Date on this admission: 10/10/19 - Critical Care Critical Care patient: No ATTENDING PHYSICIAN STATEMENT I saw and evaluated the patient. I reviewed the resident's note and discussed the case with the resident. I agree with the resident's findings and plan as documented. SUBJECTIVE: OBJECTIVE: ASSESSMENT AND PLAN:
[2019-10-10] MEDS ORDERED: FOLIC ACID INJECTION - 1 MG, THIAMINE HCL 100 MG, MULTIVIT INJECTION ADULT 10 ML in SOD... IVPB ONE (17:46)
[2019-10-10] MEDS ORDERED: LORazepam 2 MG/ML SDV VIAL IVPUSH ONE (18:00)
--- NOTE | 2019-10-10 18:05 | PN ---
Teaching Attending Note Name of Resident: Chris Castillo ATTENDING PHYSICIAN STATEMENT I saw and evaluated the patient. I reviewed the resident's note and discussed the case with the resident. I agree with the resident's findings and plan as documented. SUBJECTIVE: Feeling well now. No CP/palpitations/lightheadedness/visual disturbance/nausea/vomiting currently. OBJECTIVE: Afebrile, Hemodynamically Stable. Last Vital Signs Temp Pulse Resp BP Pulse Ox 97.4 F L 95 H 18 148/87 98 10/10/19 14:11 10/10/19 14:11 10/10/19 14:11 10/10/19 14:11 10/10/19 15:40 HEENT - Atraumatic, Normocephalic. Heart - S1, S2, SM Lungs - clear to auscultation Abdomen - Soft, non-tender. Bowel Sounds normal. Extremities - no edema, no calf tenderness. Maximino - AAO x 3. Tone/Power normal all extremities. Laboratory Results - last 24 hr 10/10/19 10/10/19 10/10/19 14:57 14:57 14:57 WBC 5.9 RBC 3.26 L Hgb 9.9 L Hct 29.4 L MCV 90.1 MCH 30.2 MCHC 33.6 RDW 15.8 H Plt Count 133 L MPV 7.4 L Absolute Neuts (auto) 4.5 Neutrophils % 76.1 D Lymphocytes % 10.6 D Monocytes % 7.7 Eosinophils % 5.0 H Basophils % 0.6 Nucleated RBC % 0 Sodium 137 Potassium 3.7 Chloride 102 Carbon Dioxide 27 Anion Gap 7 L BUN 15.4 Creatinine 1.0 Est GFR (CKD-EPI)AfAm 67.04 Est GFR (CKD-EPI)NonAf 57.84 Random Glucose 102 Calcium 9.5 Total Bilirubin 0.9 AST 46 H ALT 29 Alkaline Phosphatase 104 Creatine Kinase 121 Troponin I < 0.02 Total Protein 8.2 Albumin 4.2 Current Medications Generic Name Dose Route Start Last Admin Trade Name Freq PRN Reason Stop Dose Admin Enoxaparin Sodium 40 mg 10/11/19 10:00 Lovenox - SQ DAILY CHRISTAL Folic Acid 1 mg 10/11/19 10:00 Folic Acid - PO DAILY CHRISTAL Folic Acid 1 mg/ Thiamine HCl 1,000 mls @ 125 mls/hr 10/10/19 17:46 100 mg/ Multivitamins/Minerals IVPB 10/11/19 01:45 10 ml/ Sodium Chloride ONCE ONE Lorazepam 2 mg 10/10/19 18:00 Ativan Injection - IVPUSH 10/10/19 18:01 PRN ONE Multivitamins/Minerals/Vitamin C 1 tab 10/11/19 10:00 Tab-A-Vit - PO DAILY CHRISTAL Thiamine HCl 100 mg 10/11/19 10:00 Vitamin B1 - PO DAILY CHRISTAL Home Medications Medication Instructions Recorded NK [No Known Home Medication] 09/24/19 ASSESSMENT AND PLAN: 68 year old female with history of Alcohol Abuse, transferred from [facility] ( where she was undergoing Alcohol detox) for complaints of tachycardia, palpitations, lightheadedness. Patient reports 2 recent syncopal events associated with palpitations and lightheadedness, last 10/06/19. 1. Pre-Syncopal Symptoms, prior Syncope ECG - NSR rate 93, non-specific T wave inversion. Telemonitoring. Echo requested Carotid Duplex requested Cardiology eval. No focal or lateralizing neurological signs, no need for CT Head. PT 2. Hx Alcohol Excess No evidence of alcohol withdrawal at this time. Will give Ativan PRN MVI, Thiamine, Folate DVT Px - Lovenox SQ
[2019-10-10] MEDS ORDERED: LORazepam 2 MG/ML SDV VIAL ONE (19:51)
[2019-10-10 22:01] VITALS: BMI 19.3
[2019-10-11] MEDS ORDERED: LORazepam 2 MG/ML SDV VIAL IVPUSH ONE (01:00)
[2019-10-11 06:30] LABS: HEMATOCRIT 29.6 % (32.4-45.2); MCH 30.6 pg (25.7-33.7); MCHC 33.9 g/dl (32.0-36.0); MEAN CELL VOLUME 90.5 fl (80-96); MEAN PLT VOLUME 7.5 fl (7.5-11.1); PLATELET COUNT 133 K/MM3 (134-434); RBC 3.27 M/mm3 (3.60-5.2); RDW 15.8 % (11.6-15.6); WHITE BLOOD COUNT 4.5 K/mm3 (4.0-10.0)
[2019-10-11 07:32] LABS: BILIRUBIN,TOTAL 0.8 mg/dL (0.2-1); BLOOD UREA NITROGEN 11.1 mg/dL (7-18); CALCIUM 8.8 mg/dL (8.5-10.1); CREATININE 0.9 mg/dL (0.55-1.3); MAGNESIUM 1.4 mg/dL (1.8-2.4); PHOSPHOROUS 3.7 mg/dL (2.5-4.9); POTASSIUM 3.4 mmol/L (3.5-5.1); TOT PROT 8.1 g/dl (6.4-8.2)
[2019-10-11] MEDS ORDERED: MAGNESIUM SULF 50% (8.12 MEQ/2 ML-1 GM VIAL) IVPB ONE (08:20)
[2019-10-11] MEDS: POTASSIUM CHLORIDE TABS 20 MEQ TABLET.ER (FP) PO SCH ×2 (08:49→14:48)
[2019-10-11] MEDS: ENOXAPARIN NA (PORCINE) 40 MG/0.4 ML DISP.SYRIN SQ SCH (08:59)
[2019-10-11] MEDS: MULTIVITAMINS (DAILY MVI) TABLET (FP) PO SCH (08:59)
[2019-10-11] MEDS: FOLIC ACID 1 MG TABLET (FP) PO SCH (08:59)
[2019-10-11] MEDS: THIAMINE HCL 100 MG TABLET (FP) PO SCH (08:59)
--- NOTE | 2019-10-11 09:49 | CON.CARD ---
Consult Consult Specialty:: cardio - History of Present Illness Chief Complaint: palps, syncope History of Present Illness: 68 F here with palpitations and dizziness. Sent from [facility] with complaint of dizziness, palpitations occurring while sitting down to eat lunch felt similar symptoms few days prior with associated SYNCOPE--prodrome then palpitations, dizziness, shortness of breath, and chest pressure she described as a "punch to the chest". (no bowel or bladder incontinence.) per pt estimate, was down approx 8 min went to [facility], apparently discharged after few days ? workup details then--pt cannot recall what tests were done denies any etoh at time of these 2 sx episodes. says last drink was 7d ago does not feel jittery/tremulous no prior CV history or cp sx's denies any signif PMH + etoh abuse remote ex cigs denies drugs FH: not known--no known sudden , CV dz - Alcohol/Substance Use Hx Alcohol Use: Yes History of Substance Use: reports: None - Smoking History Smoking history: Former smoker Have you smoked in the past 12 months: No If you are a former smoker, when did you quit?: 17 yrs - Social History ADL: Independent History of Recent Travel: No Home Medications - Allergies Allergies/Adverse Reactions: Allergies Allergy/AdvReac Type Severity Reaction Status Date / Time No Known Allergies Allergy Verified 10/10/19 14:16 - Home Medications Home Medications: Ambulatory Orders NK [No Known Home Medication] 09/24/19 Review of Systems - Review of Systems Constitutional: denies: Chills, Fever Eyes: denies: Eye Pain HENT: denies: Nasal Congestion Neck: denies: Stiffness Cardiovascular: denies: Edema Respiratory: denies: Orthopnea, PND Gastrointestinal: denies: Diarrhea, Rectal Bleeding Genitourinary: denies: Burning, Hematuria Musculoskeletal: denies: Muscle Pain Integumentary: denies: Rash Neurological: denies: Numbness, Seizure Endocrine: denies: Excessive Sweating Hematology/Lymphatic: denies: Excessive Bleeding Vital Signs: Vital Signs Temperature 98.0 F 10/11/19 06:45 Pulse Rate 82 10/11/19 09:42 Respiratory Rate 18 10/11/19 09:42 Blood Pressure 118/81 10/11/19 09:42 O2 Sat by Pulse Oximetry (%) 99 10/10/19 21:10 Constitutional: Yes: Well Nourished, No Distress Eyes: No: Sclera Icterus HENT: No: Nasal Congestion Neck: No: Decreased ROM Respiratory: Yes: CTA Bilaterally. No: Accessory Muscle Use, Rales, Wheezes Gastrointestinal: Yes: Normal Bowel Sounds. No: Distention, Hepatomegaly, Palpable Mass, Tenderness Cardiovascular: Yes: Regular Rate and Rhythm JVD: No Carotid Bruit: No PMI: Non-Displaced Heart Sounds: Yes: S1, S2. No: Gallop Murmur: No: Systolic Murmur, Diastolic Murmur Musculoskeletal: Yes: Other (No kyphosis) Extremities: No: Cool, Cyanosis Edema: No Peripheral Pulses: 2+ Left Carotid, 2+ Right Carotid, 2+ Left Doralis Pedis, 2+ Right Dorsalis Pedis Integumentary: No: Jaundice Neurological: Yes: Alert, Oriented (x3) Psychiatric: No: Agitated - Other Data Labs, Other Data: CBC, BMP 10/11/19 05:49 10/11/19 05:49 Troponin, BNP 10/10/19 14:57 Troponin I < 0.02 Troponin, BNP 10/10/19 14:57 Troponin I < 0.02 Assessment/Plan ECG: NSR, normal axis, normal intervals incl QT. no delta waves. no path q's. nonsp TWA septal leads unchanged vs 09/24 CXR: clear lungs/pleura syncope, palpitations: -presentation to outside hosp few days [facility] concerning for possible arrhythmic syncope. ? sustained rib fractures then (seen on CXR here) -? details of w/u there -in [facility] for etoh detox, noted dizziness and palpitations again on DOA -sx's both times were NOT in setting of etoh intoxication, per pt report -trop neg, ECG non-ischemic, no signs channelopathy or prior CO -not orthostatic, not pre-renal labs picture -check echo -cont tele -plan ETT for risk stratification of indicuble arrhythmia -if w/u here benign, rec outpt prolonged rhythm monitor given suspicious nature of her sx's etoh abuse: -replete lytes prn -plan per hospitalist -last drink 7d ago, does not seem to be withdrawing significantly elevated TSH: -per primary team anemia: -per primary team
[2019-10-11] MEDS ORDERED: LORazepam 2 MG TABLET PO SCH (17:00)
--- NOTE | 2019-10-11 17:05 | EKG ---
Test Reason : Blood Pressure : / mmHG Vent. Rate : 093 BPM Atrial Rate : 093 BPM P-R Int : 176 ms QRS Dur : 076 ms QT Int : 366 ms P-R-T Axes : 046 002 007 degrees QTc Int : 455 ms NORMAL SINUS RHYTHM NONSPECIFIC T WAVE ABNORMALITY WHEN COMPARED WITH ECG OF 25-SEP-2019 13:16, VENT. RATE HAS INCREASED Confirmed by PABLO PETERSON MD ([id number]) on 10/11/2019 5:05:33 PM Referred By: Confirmed By:PABLO PETERSON MD
--- NOTE | 2019-10-11 19:27 | PN ---
Progress Note (short form) - Note Progress Note: SUBJECTIVE: Complains of intermittent lightheadedness on ambulation. No CP/ palpitations/visual disturbance/nausea/vomiting currently. OBJECTIVE: Afebrile, Hemodynamically Stable. Mobilizes with walker. Last Vital Signs Temp Pulse Resp BP Pulse Ox 98.0 F 102 H 18 152/90 99 10/11/19 14:00 10/11/19 18:00 10/11/19 18:00 10/11/19 18:00 10/10/19 21:10 Heart - S1, S2, SM Lungs - clear to auscultation Abdomen - Soft, non-tender. Bowel Sounds normal. Extremities - no edema, no calf tenderness. Maximino - AAO x 3. Tone/Power normal all extremities. Laboratory Results - last 24 hr 10/11/19 10/11/19 05:49 05:49 WBC 4.5 RBC 3.27 L Hgb 10.0 L Hct 29.6 L MCV 90.5 MCH 30.6 MCHC 33.9 RDW 15.8 H Plt Count 133 L MPV 7.5 Sodium 139 Potassium 3.4 L Chloride 106 Carbon Dioxide 25 Anion Gap 9 BUN 11.1 Creatinine 0.9 Est GFR (CKD-EPI)AfAm 76.14 Est GFR (CKD-EPI)NonAf 65.70 Random Glucose 87 Calcium 8.8 Phosphorus 3.7 Magnesium 1.4 L Total Bilirubin 0.8 AST 43 H ALT 27 Alkaline Phosphatase 100 Total Protein 8.1 Albumin 4.0 TSH 6.64 H Thyroxine (T4) 7.8 Current Medications Generic Name Dose Route Start Last Admin Trade Name Freq PRN Reason Stop Dose Admin Enoxaparin Sodium 40 mg 10/11/19 10:00 10/11/19 08:59 Lovenox - SQ 40 mg DAILY CHRISTAL Administration Folic Acid 1 mg 10/11/19 10:00 10/11/19 08:59 Folic Acid - PO 1 mg DAILY CHRISTAL Administration Multivitamins/Minerals/Vitamin C 1 tab 10/11/19 10:00 10/11/19 08:59 Tab-A-Vit - PO 1 tab DAILY CHRISTAL Administration Thiamine HCl 100 mg 10/11/19 10:00 10/11/19 08:59 Vitamin B1 - PO 100 mg DAILY CHRISTAL Administration Home Medications Medication Instructions Recorded NK [No Known Home Medication] 09/24/19 ASSESSMENT AND PLAN: 68 year old female with history of Alcohol Abuse, transferred from [facility] ( where she was undergoing Alcohol detox) for complaints of tachycardia, palpitations, lightheadedness while sitting. Patient reports 2 recent syncopal events associated with palpitations and lightheadedness, last 10/06/19. 1. Pre-Syncopal Symptoms, prior Syncope ECG - NSR rate 93, non-specific T wave inversion. Not orthostatic. No Telemonitoring events Echo requested Carotid Duplex - plaque bilateral common carotid arteries but no hemodynamically significant stenosis. Cardiology evaluated and recommends ETT and out-patient prolonged rhythm monitoring if in-patient work-up negative. No focal or lateralizing neurological signs, no need for CT Head. PT 2. Hx Alcohol Excess No evidence of alcohol withdrawal at this time. Mild tremor. MVI, Thiamine, Folate 3. Elevated TSH, normal T4. Will send Free T4. 4. Hypokalemia/Hypomagnesemia - repleted. DVT Px - Lovenox SQ Visit type - Emergency Visit Emergency Visit: Yes ED Registration Date: 10/10/19 Care time: The patient presented to the Emergency Department on the above date and was hospitalized for further evaluation of their emergent condition. - New Patient This patient is new to me today: No - Critical Care Critical Care patient: No - Discharge Referral Referred to [facility] No
[2019-10-11] MEDS ORDERED: LORazepam 1 MG TABLET PO PRN (19:51)
[2019-10-11] MEDS: LORazepam 1 MG TABLET PO SCH ×2 (20:52→22:47)
[2019-10-12] MEDS ORDERED: LORazepam 0.5 MG TABLET PO SCH ×2 (05:00→17:00)
[2019-10-12] MEDS: LORazepam 1 MG TABLET PO SCH ×2 (05:45→11:48)
[2019-10-12 06:48] LABS: ANION GAP 8 MMOL/L (8-16); CHLORIDE 105 mmol/L (98-107); CO2 22 mmol/L (21-32); CREATININE 0.9 mg/dL (0.55-1.3); GLUCOSE,RANDOM 91 mg/dL (74-106); MAGNESIUM 1.8 mg/dL (1.8-2.4); POTASSIUM 4.2 mmol/L (3.5-5.1); SODIUM 134 mmol/L (136-145)
[2019-10-12] MEDS: FOLIC ACID 1 MG TABLET (FP) PO SCH (10:03)
[2019-10-12] MEDS: THIAMINE HCL 100 MG TABLET (FP) PO SCH (10:04)
[2019-10-12] MEDS: ENOXAPARIN NA (PORCINE) 40 MG/0.4 ML DISP.SYRIN SQ SCH (10:04)
[2019-10-12] MEDS: MULTIVITAMINS (DAILY MVI) TABLET (FP) PO SCH (10:04)
--- NOTE | 2019-10-12 12:21 | ECHO ---
Name: ZULEIKA HAMILTON Exam:Adult Echocardiogram Study Date: 10/12/2019 10:46 AM Age: 68 yrs Height: 65 in Weight: 120 lb BSA: 1.6 m2 MMode/2D Measurements & Calculations IVSd: 1.2 cm Ao root diam: 2.9 cm LVIDd: 3.0 cm LA dimension: 2.2 cm LVIDs: 2.3 cm ACS: 1.8 cm LVPWd: 0.94 cm EDV(Teich): 35.2 ml LVOT diam: 1.7 cm ESV(Teich): 18.2 ml RV S Kenny: 11.2 cm/sec Doppler Measurements & Calculations MV E max kenny: 47.9 cm/sec MVA(VTI): 1.9 cm2 MV A max kenny: 96.7 cm/sec MV V2 max: 91.3 cm/sec MV E/A: 0.49 MV max P.3 mmHg MV dec time: 0.19 sec MV V2 mean: 47.3 cm/sec MV mean P.1 mmHg MV V2 VTI: 17.5 cm Ao V2 max: 119.5 cm/sec LV V1 max P.2 mmHg Ao max P.7 mmHg LV V1 mean P.2 mmHg Ao V2 mean: 78.3 cm/sec LV V1 max: 74.0 cm/sec Ao mean P.8 mmHg LV V1 mean: 51.3 cm/sec Ao V2 VTI: 20.4 cm LV V1 VTI: 13.7 cm ZARINA(I,D): 1.6 cm2 ZARINA(V,D): 1.5 cm2 MR max kenny: 278.3 cm/sec SV(LVOT): 32.8 ml MR max P.0 mmHg TR max kenny: 206.3 cm/sec PA V2 max: 50.3 cm/sec TR max P.3 mmHg PA max P.0 mmHg Med Peak E' Kenny: 9.7 cm/sec Med E/e': 5.0 Lat Peak E' Kenny: 6.0 cm/sec Lat E/e': 7.9 Procedure A complete two-dimensional transthoracic echocardiogram was performed (2D, M-mode, Doppler and color flow Doppler). Left Ventricle The left ventricle is normal in size. Left ventricular systolic function is normal. Ejection Fraction = 55- 60%. No regional wall motion abnormalities noted. Right Ventricle The right ventricle is normal size. The right ventricular systolic function is normal. Atria The left atrial size is normal. Right atrial size is normal. Mitral Valve The mitral valve is normal in structure and function. There is mild mitral regurgitation. Tricuspid Valve The tricuspid valve is normal in structure and function. There is mild tricuspid regurgitation. Aortic Valve There is mild to moderate aortic sclerosis.;. Mild aortic regurgitation. Pulmonic Valve The pulmonic valve is not well visualized. Great Vessels The aortic root is normal size. Pericardium/Pleura There is no pericardial effusion. Interpretation Summary The left ventricle is normal in size. Left ventricular systolic function is normal. No regional wall motion abnormalities noted. Ejection Fraction = 55-60%. The right ventricular systolic function is normal. The left atrial size is normal. Right atrial size is normal. There is mild mitral regurgitation. There is mild tricuspid regurgitation. There is mild to moderate aortic sclerosis. Mild aortic regurgitation. There is no pericardial effusion. Onofre Figueroa MD 10/12/2019 12:20 PM
--- NOTE | 2019-10-12 13:16 | PN ---
Teaching Attending Note Name of Resident: Eleanor Boyer ATTENDING PHYSICIAN STATEMENT I saw and evaluated the patient. I reviewed the resident's note and discussed the case with the resident. I agree with the resident's findings and plan as documented. SUBJECTIVE: Feels okay, no more lightheadedness. No CP/palpitations/visual disturbance/nausea/vomiting currently. OBJECTIVE: Afebrile, Hemodynamically Stable. Mobilizes with walker. Last Vital Signs Temp Pulse Resp BP Pulse Ox 98.1 F 80 29 H 146/90 99 10/12/19 05:00 10/12/19 05:00 10/12/19 05:00 10/12/19 05:00 10/12/19 05:00 Heart - S1, S2, SM Lungs - clear to auscultation Abdomen - Soft, non-tender. Bowel Sounds normal. Extremities - no edema, no calf tenderness. Maximino - AAO x 3. Tone/Power normal all extremities. Laboratory Results - last 24 hr 10/12/19 05:47 Sodium 134 L Potassium 4.2 Chloride 105 Carbon Dioxide 22 Anion Gap 8 BUN 12.0 Creatinine 0.9 Est GFR (CKD-EPI)AfAm 76.14 Est GFR (CKD-EPI)NonAf 65.70 Random Glucose 91 Calcium 9.0 Magnesium 1.8 Creatine Kinase 90 Troponin I < 0.02 Current Medications Generic Name Dose Route Start Last Admin Trade Name Freq PRN Reason Stop Dose Admin Enoxaparin Sodium 40 mg 10/11/19 10:00 10/12/19 10:04 Lovenox - SQ 40 mg DAILY CHRISTAL Administration Folic Acid 1 mg 10/11/19 10:00 10/12/19 10:03 Folic Acid - PO 1 mg DAILY CHRISTAL Administration Lorazepam 0.5 mg 10/14/19 05:00 Ativan - PO 10/14/19 23:01 Q6H CHRISTAL Lorazepam 0.5 mg 10/14/19 00:00 Ativan - PO 10/15/19 00:00 Q4H PRN Symptoms of Withdrawal Lorazepam 0.5 mg 10/15/19 05:00 Ativan - PO 10/15/19 05:01 ONCE ONE Lorazepam 1 mg 10/13/19 05:00 Ativan - PO 10/13/19 23:01 0500,1100,1700,2300 CHRISTAL Lorazepam 1 mg 10/11/19 19:51 Ativan - PO 10/13/19 23:59 Q4H PRN Symptoms of Withdrawal Lorazepam 2 mg 10/11/19 20:04 10/12/19 11:48 Ativan - PO 10/12/19 23:01 Not Given 0500,1100,1700,2300 CHRISTAL Multivitamins/Minerals/Vitamin C 1 tab 10/11/19 10:00 10/12/19 10:04 Tab-A-Vit - PO 1 tab DAILY CHRISTAL Administration Thiamine HCl 100 mg 10/11/19 10:00 10/12/19 10:04 Vitamin B1 - PO 100 mg DAILY CHRISTAL Administration Home Medications Medication Instructions Recorded NK [No Known Home Medication] 09/24/19 ASSESSMENT AND PLAN: 68 year old female with history of Alcohol Abuse, transferred from [facility] ( where she was undergoing Alcohol detox) for complaints of tachycardia, palpitations, lightheadedness while sitting. Patient reports 2 recent syncopal events associated with palpitations and lightheadedness, last 10/06/19. 1. Pre-Syncopal Symptoms, prior Syncope ECG - NSR rate 93, non-specific T wave inversion. Not orthostatic. No Telemonitoring events Echo normal. Carotid Duplex - plaque bilateral common carotid arteries but no hemodynamically significant stenosis. Cardiology evaluated and recommends out-patient prolonged rhythm monitoring if in-patient work-up negative. No focal or lateralizing neurological signs, no need for CT Head. PT 2. Hx Alcohol Excess Some anxiety mild tremor. Resumed on Ativan as per CIWA protocol overnight. Continue MVI, Thiamine, Folate Discussed with Dr. Cunningham, accepted to return to . 3. Elevated TSH, normal T4. Awaiting Free T4. 4. Hypokalemia/Hypomagnesemia - repleted. Medically stable for transfer to [facility] to complete detox and perhaps transition to Rehab.
[2019-10-12] MEDS ORDERED: LORazepam 1 MG TABLET PO PRN (13:39)
[2019-10-12 15:35] VITALS: BP 126/84; PULSE 97; TEMP 98
--- NOTE | 2019-10-12 16:10 | DS ---
Physical Exam: SUBJECTIVE: Patient seen and examined. No acute events overnight. Patient denies chest pain, dizziness, sob, abd pain, fever, chills or other complaints. Denies agitation, anxiety, headache. OBJECTIVE: Vital Signs Period Temp Pulse Resp BP Sys/Lozano Pulse Ox Last 24 Hr 97.8 F-98.5 F 80-102 18-29 124-156/78-100 99-100 PHYSICAL EXAM GENERAL: The patient is awake, alert, and fully oriented, in no acute distress. HEAD: Normal with no signs of trauma. EYES: EOMI, no scleral icterus, no ptosis ENT: MMM NECK: Trachea midline, full range of motion, supple. LUNGS: Breath sounds equal, clear to auscultation bilaterally, no wheezes, no crackles, no accessory muscle use. HEART: Regular rate and rhythm, S1, S2 without murmur, rub or gallop. ABDOMEN: Soft, nontender, nondistended, normoactive bowel sounds, no guarding, no rebound EXTREMITIES: 2+ pulses, warm, well-perfused, no edema. no tremors. NEUROLOGICAL: Normal speech, gait not observed. PSYCH: appropriate mood and affect SKIN: Warm, dry, normal turgor, no rashes or lesions noted. LABS Laboratory Results - last 24 hr 10/12/19 05:47 Sodium 134 L Potassium 4.2 Chloride 105 Carbon Dioxide 22 Anion Gap 8 BUN 12.0 Creatinine 0.9 Est GFR (CKD-EPI)AfAm 76.14 Est GFR (CKD-EPI)NonAf 65.70 Random Glucose 91 Calcium 9.0 Magnesium 1.8 Creatine Kinase 90 Troponin I < 0.02 Free T4 0.90 HOSPITAL COURSE: Date of Admission:10/10/19 Date of Discharge: 10/12/19 Patient is a 68 year old female who denies significant medical history who presented from [facility] for complaints of dizziness and palpitations and was admitted for a pre-syncope workup. EKG was negative for signs of ischemia, orthostatic vitals were negative. A carotid duplex showed bilateral common carotid artery plaques but no hemodynamically significant stenosis. An ECHO was completed which was without significant abnormalities. Cardiology recommended that an ETT would be low yield as patient walks with a walker and is unable to a treadmill stress test so stress test was deferred at this time. Patient was continued on Ativan protocol for alcohol detox. An elevated TSH was noted but total and free T4 were both within normal limits. Patient stable for discharge back to [facility] for continuing detox/rehab. Cardiology recommended outpatient follow up for extended rhythm monitoring. Minutes to complete discharge: 36 Discharge Summary Problems reviewed: Yes Reason For Visit: PRE-SYNCOPE Condition: Improved - Instructions Diet, Activity, Other Instructions: You presented to the hospital with complaints of dizziness and palpitations. You had a chest xray completed which did not show any signs of pneumonia. You had an EKG which did not show signs of heart attack or abnormal rhythm. An ultrasound of the arteries in your neck showed plaques in both of your carotid arteries but no hemodynamically significant stenosis. You were seen by Cardiology and had an ultrasound of heart completed which did not show any significant abnormalities. Your cardiac enzymes were normal during this admission. Cardiology recommended outpatient follow up for prolonged rhythm monitoring to monitor your heart. You are being discharged to [facility] to continue detox at this time as you were started on a detox protocol overnight. Follow up with the following physicians: 1. Please follow up with your primary care provider within one week of discharge for further management of your medical conditions. If you do not have a primary care doctor a referral has been included for [facility] for you. 2. Please follow up with Dr. Conroy, Cardiology, for further workup as to why you have having episodes of dizziness and palpitations. Activity and Diet 1. You are being discharged to [facility] to continue detox from alcohol use. Continue all your other medications as prescribed Please return to the ER if you have any signs or symptoms of chest pain, shortness of breath, uncontrollable fever, chills, nausea, vomiting, numbness, tingling, or weakness in any part of your body, changes in vision, or slurred speech. Please return to the ER if symptoms persist, worsen, or new symptoms arise. Referrals: Nav Yousif MD [Staff Physician] - Jeison Conroy MD [Staff Physician] - Disposition: TRANSFER ACUTE CARE/OTHER HOSP - Home Medications Comprehensive Discharge Medication List: Ambulatory Orders NK [No Known Home Medication] 09/24/19 This patient is new to me today: Yes Date on this admission: 10/12/19 Emergency Visit: Yes ED Registration Date: 10/10/19 Care time: The patient presented to the Emergency Department on the above date and was hospitalized for further evaluation of their emergent condition. Critical Care patient: No - Discharge Referral Referred to [facility] No ATTENDING PHYSICIAN STATEMENT I saw and evaluated the patient. I reviewed the resident's note and discussed the case with the resident. I agree with the resident's findings and plan as documented. SUBJECTIVE: OBJECTIVE: ASSESSMENT AND PLAN:
[2019-10-13] MEDS ORDERED: LORazepam 1 MG TABLET PO SCH (05:00)
[2019-10-13] MEDS ORDERED: LORazepam 0.5 MG TABLET PO ONE ×3 (05:00→17:00)
[2019-10-14] MEDS ORDERED: LORazepam 0.5 MG TABLET PO PRN ×2
[2019-10-14] MEDS ORDERED: LORazepam 0.5 MG TABLET PO SCH (05:00)
[2019-10-15] MEDS ORDERED: LORazepam 0.5 MG TABLET PO ONE (05:00)
== END 2019-10-12 15:51 | disposition other institution (70) ==
LOC: JER 13:55 → JERBED 16:34 → INTOOBSV 16:34 → J4W 21:01
PROC: 3E033GC Introduction of Other Therapeutic Substance into Peripheral Vein, Percutaneous Approach (ICD-10-PCS; principal; 2019-10-10)
PROC: 3E0337Z Introduction of Electrolytic and Water Balance Substance into Peripheral Vein, Percutaneous Approach (ICD-10-PCS; 2019-10-10)
PROC: 3E013GC Introduction of Other Therapeutic Substance into Subcutaneous Tissue, Percutaneous Approach (ICD-10-PCS; 2019-10-10)
DX: R55 Syncope and collapse (principal); I10 Essential (primary) hypertension; F10.10 Alcohol abuse, uncomplicated; D64.9 Anemia, unspecified; R94.6 Abnormal results of thyroid function studies; E87.6 Hypokalemia; E83.42 Hypomagnesemia; Z87.891 Personal history of nicotine dependence
CPT/HCPCS: 36415; 71045-TC-FY; 80048; 80053; 82550; 83735; 84100; 84436; 84439; 84443; 84484; 85025; 85027; 93005; 93010; 93306-TC; 93880-TC; 97116-GP; 97162-GP; 99285-25; G0378; J7030

== ENCOUNTER 2019-10-12 16:46 | Inpatient (IN) | payer OTHER ==
[2019-10-12 19:36] VITALS: BMI 20.2
--- NOTE | 2019-10-12 19:45 | HP ---
CIWA Score Nausea/Vomitin-Mild Nausea/No Vomiting Muscle Tremors: 3 Anxiety: 1-Mildly Anxious Agitation: 2 Paroxysmal Sweats: No Perspiration Orientation: 0-Oriented Tacttile Disturbances: 0-None Auditory Disturbances: 0-None Visual Disturbances: 0-None Headache: 1-Very Mild CIWA-Ar Total Score: 8 - Admission Criteria OASAS Guidelines: Admission for Medically Managed Detox: Requires at least one of the followin. CIWA greater than 12 2. Seizures within the past 24 hours 3. Delirium tremens within the past 24 hours 4. Hallucinations within the past 24 hours 5. Acute intervention needed for co occurring medical disorder 6. Acute intervention needed for co occurring psychiatric disorder 7. Severe withdrawal that cannot be handled at a lower level of care (continued vomiting, continued diarrhea, abnormal vital signs) requiring intravenous medication and/or fluids 8. Admitting History and Physical - Smoking History Smoking history: Former smoker Have you smoked in the past 12 months: No If you are a former smoker, when did you quit?: 17 yrs - Alcohol/Substance Use Hx Alcohol Use: Yes History of Substance Use: reports: None - Social History ADL: Independent History of Recent Travel: No Admission ROS [facility] Chief Complaint: completing alcohol detox protocol Allergies/Adverse Reactions: Allergies Allergy/AdvReac Type Severity Reaction Status Date / Time No Known Allergies Allergy Verified 10/10/19 14:16 History of Present Illness: Pt is transferred back from [facility] to complete detox. Pt was sent to [facility] 2 days ago for evaluation of syncope. Please refer to below and previous notes for details. PE and d/c note from today at [facility]: GENERAL: The patient is awake, alert, and fully oriented, in no acute distress. HEAD: Normal with no signs of trauma. EYES: EOMI, no scleral icterus, no ptosis ENT: MMM NECK: Trachea midline, full range of motion, supple. LUNGS: Breath sounds equal, clear to auscultation bilaterally, no wheezes, no crackles, no accessory muscle use. HEART: Regular rate and rhythm, S1, S2 without murmur, rub or gallop. ABDOMEN: Soft, nontender, nondistended, normoactive bowel sounds, no guarding, no rebound EXTREMITIES: 2+ pulses, warm, well-perfused, no edema. no tremors. NEUROLOGICAL: Normal speech, gait not observed. PSYCH: appropriate mood and affect SKIN: Warm, dry, normal turgor, no rashes or lesions noted. LABS Laboratory Results - last 24 hr 10/12/19 05:47 Sodium 134 L Potassium 4.2 Chloride 105 Carbon Dioxide 22 Anion Gap 8 BUN 12.0 Creatinine 0.9 Est GFR (CKD-EPI)AfAm 76.14 Est GFR (CKD-EPI)NonAf 65.70 Random Glucose 91 Calcium 9.0 Magnesium 1.8 Creatine Kinase 90 Troponin I < 0.02 Free T4 0.90 HOSPITAL COURSE: Patient is a 68 year old female who denies significant medical history who presented from [facility] for complaints of dizziness and palpitations and was admitted for a pre-syncope workup. EKG was negative for signs of ischemia, orthostatic vitals were negative. A carotid duplex showed bilateral common carotid artery plaques but no hemodynamically significant stenosis. An ECHO was completed which was without significant abnormalities. Cardiology recommended that an ETT would be low yield as patient walks with a walker and is unable to a treadmill stress test so stress test was deferred at this time. Patient was continued on Ativan protocol for alcohol detox. An elevated TSH was noted but total and free T4 were both within normal limits. Patient stable for discharge back to [facility] for continuing detox/rehab. Cardiology recommended outpatient follow up for extended rhythm monitoring. - Ebola screening Have you traveled outside of the country in the last 21 days: No (N) Have you had contact with anyone from an Ebola affected area: No Do you have a fever: No Patient History - Patient Medical History Hx Anemia: No Hx Asthma: No Hx Chronic Obstructive Pulmonary Disease (COPD): No Hx Cancer: No Hx Cardiac Disorders: No Hx Congestive Heart Failure: No Hx Hypertension: No Hx Hypercholesterolemia: No Hx Pacemaker: No HX Cerebrovascular Accident: No Hx Seizures: No Hx Dementia: No Hx Diabetes: No Hx Gastrointestinal Disorders: No Hx Liver Disease: No Hx Genitourinary Disorders: No Hx Sexually Transmitted Disorders: No Hx Renal Disease (ESRD): No Hx Thyroid Disease: No Hx Hepatitis C: No Hx Depression: No Hx Suicide Attempt: No Hx Bipolar Disorder: No Hx Schizophrenia: No - Patient Surgical History Past Surgical History: Yes Hx Neurologic Surgery: No Hx Cataract Extraction: No Hx Cardiac Surgery: No Hx Lung Surgery: No Hx Breast Surgery: No Hx Breast Biopsy: No Hx Abdominal Surgery: Yes (43years ago.) Hx Appendectomy: No Hx Cholecystectomy: No Hx Genitourinary Surgery: No Hx Section: No Hx Orthopedic Surgery: No Anesthesia Reaction: No - PPD History Date: 09/26/19 - Smoking Cessation Smoking history: Former smoker Have you smoked in the past 12 months: No If you are a former smoker, when did you quit?: 17 yrs Hx Chewing Tobacco Use: No Initiated information on smoking cessation: No 'Breaking Loose' booklet given: 10/12/19 - Substances abused Alcohol Substance route: Oral Frequency: Daily Amount used: half a pint of vodka Age of first use: 25 Date of last use: 10/07/19 Admission Physical Exam [facility] - Vital Signs Vital Signs: Vital Signs - 24 hr 10/12/19 19:33 Temperature 98.0 F Pulse Rate 99 H Respiratory 18 Rate Blood Pressure 142/94 Breathalyzer - Breathalyzer Breathalyzer: 0 Urine Drug Screen - Test Device Lot number: [id number] Expiration date: 05/06/21 - Control Is test valid?: Yes - Results Drug screen NEGATIVE: No Urine drug screen results: BZO-Benzodiazepines Inpatient Rehab Admission - Rehab Decision to Admit Inpatient rehab admission?: No
[2019-10-12] MEDS ORDERED: LORazepam 1 MG TABLET PO PRN (20:31)
[2019-10-12] MEDS ORDERED: MENTHOL/PHENOL 1 EACH UD MM PRN (20:36)
[2019-10-12] MEDS ORDERED: IBUPROFEN 400 MG TABLET (FP) PO PRN (20:36)
[2019-10-12] MEDS ORDERED: METHOCARBAMOL 500 MG TABLET PO PRN (20:36)
[2019-10-12] MEDS ORDERED: MAGNESIUM CITRATE 300 ML BOTTLE PO PRN (20:36)
[2019-10-12] MEDS ORDERED: MAGNESIUM HYDROX 2400MG/30ML ORAL SUSPENSION 30 ML CUP PO PRN (20:36)
[2019-10-12] MEDS ORDERED: MELATONIN 5 MG TABLETS PO PRN (20:36)
[2019-10-12] MEDS ORDERED: BISMUTH SUBSALICYLATE 524 MG/30 ML UD PO PRN (20:36)
[2019-10-12] MEDS ORDERED: ACETAMINOPHEN 325 MG TABLET (FP) PO PRN (20:36)
[2019-10-12] MEDS ORDERED: hydrOXYzine PAMOATE 25 MG CAPSULE (FP) PO PRN (20:36)
[2019-10-12] MEDS ORDERED: MAG HYDROX/AL HYDROX/SIMETH 30 ML UNIT-DOSE CUP PO PRN (20:36)
[2019-10-12] MEDS: THIAMINE HCL 100 MG TABLET (FP) PO SCH (22:37)
[2019-10-12] MEDS: LORazepam 0.5 MG TABLET PO SCH (22:37)
[2019-10-13] MEDS: LORazepam 0.5 MG TABLET PO SCH ×4 (06:01→22:16)
[2019-10-13] MEDS: PRENATAL VITAMINS W/ FOLIC ACID TABLET (FP) PO SCH (10:06)
--- NOTE | 2019-10-13 11:45 | PN ---
S CIWA - CIWA Score Nausea/Vomitin-No Nausea/No Vomiting Muscle Tremors: 2 Anxiety: 1-Mildly Anxious Agitation: 1-Slight > Activity Paroxysmal Sweats: No Perspiration Orientation: 0-Oriented Tacttile Disturbances: 0-None Auditory Disturbances: 0-None Visual Disturbances: 0-None Headache: 0-None Present CIWA-Ar Total Score: 4 BHS Progress Note (SOAP) Subjective: i feel fine no dizziness, no passing out little anxiety Objective: 10/13/19 11:44 Vital Signs Temperature 97.5 F L 10/13/19 09:40 Pulse Rate 93 H 10/13/19 09:40 Respiratory Rate 18 10/13/19 09:40 Blood Pressure 140/76 10/13/19 09:40 O2 Sat by Pulse Oximetry (%) aaox3 ambulating no acute distress Assessment: 10/13/19 11:44 mild to no withdrawals noted Plan: continue and complete detox d/c in am
[2019-10-13] MEDS: THIAMINE HCL 100 MG TABLET (FP) PO SCH (22:16)
[2019-10-13] MEDS: ACETAMINOPHEN 325 MG TABLET (FP) PO PRN (22:17)
[2019-10-14] MEDS: LORazepam 0.5 MG TABLET PO SCH (06:10)
[2019-10-14] MEDS: ACETAMINOPHEN 325 MG TABLET (FP) PO PRN (07:27)
--- NOTE | 2019-10-14 08:50 | DS ---
[facility] Detox Discharge Summary Admission Date: 10/12/19 Discharge Date: 10/14/19 - History Present History: Alcohol Dependence - Physical Exam Results Vital Signs: Vital Signs Temperature 98.1 F 10/14/19 06:52 Pulse Rate 89 10/14/19 06:52 Respiratory Rate 18 10/14/19 06:52 Blood Pressure 147/100 10/14/19 06:52 O2 Sat by Pulse Oximetry (%) Pertinent Admission Physical Exam Findings: Vital Signs Temperature 98.1 F 10/14/19 06:52 Pulse Rate 89 10/14/19 06:52 Respiratory Rate 18 10/14/19 06:52 Blood Pressure 147/100 10/14/19 06:52 O2 Sat by Pulse Oximetry (%) aaox3 ambulating no acute distress - Treatment Hospital Course: Detox Protocol Followed, Detoxed Safely, Responded well, Discharged Condition Good, Rehab Referral Accepted Patient has Accepted a Rehab Referral to: pt refused; going home - Medication Discharge Medications: Ambulatory Orders NK [No Known Home Medication] 09/24/19 - Diagnosis (1) Alcohol dependence with withdrawal, uncomplicated Current Visit: Yes Status: Chronic (2) Hypertension Current Visit: Yes Status: Chronic Qualifiers: Hypertension type: essential hypertension Qualified Code(s): I10 - Essential (primary) hypertension (3) Syncope Current Visit: No Status: Acute Qualifiers: Syncope type: unspecified Qualified Code(s): R55 - Syncope and collapse (4) Walker as ambulation aid Current Visit: Yes Status: Chronic - AMA Did Patient Leave Against Medical Advice: No
[2019-10-14 09:27] VITALS: BP 139/77; PULSE 93; TEMP 98.4
[2019-10-14] MEDS: PRENATAL VITAMINS W/ FOLIC ACID TABLET (FP) PO SCH (11:40)
[2019-10-15] MEDS ORDERED: LORazepam 0.5 MG TABLET PO PRN
[2019-10-16] MEDS ORDERED: LORazepam 0.5 MG TABLET PO ONE (05:00)
== END 2019-10-14 11:37 | disposition home or self-care (01) | DRG 897 ==
LOC: YASAS 16:46 → Y6N 21:20
PROVIDERS: ADMIT Allergy & Immunology; ATTEND Allergy & Immunology
PROC: HZ2ZZZZ Detoxification Services for Substance Abuse Treatment (ICD-10-PCS; principal; 2019-10-12)
DX: F10.230 Alcohol dependence with withdrawal, uncomplicated (principal); I10 Essential (primary) hypertension; R55 Syncope and collapse; Z99.89 Dependence on other enabling machines and devices

== ENCOUNTER 2020-03-22 13:12 | Inpatient (IN) | payer OTHER ==
--- NOTE | 2020-03-22 13:14 | BHS.RME ---
Substance Use & Tx History - Substance Use History Alcohol Substance amount: 10/08 pint vodka Frequency of use: Daily Substance route: Oral Date of Last Use: 03/19/20 - Last Treatment Date of last treatment: 10/2019 Treatment type: Substance Use Disorder (PRETTY) Where was last treatment: Detox Physical/Psych/Mental Status - Behavior General Behavior: Increased activity (restlessness, agitation) Eye Contact: Normal - Cooperativeness Cooperativeness: Cooperative - Thinking Thought Processes: Tight, Logical, Goal Directed - Physical Health Problems Is patient presently having any pain?: No Does patient presently have any injuries (include location): No Does patient currently have a fever: No Is patient : No CIWA Nausea/Vomitin-Int. Nausea w/Dry Heave Muscle Tremors: 4-Moderate,w/Arms Extend Anxiety: 3 Agitation: 3 Paroxysmal Sweats: 1-Minimal Palms Moist Orientation: 3-Disoriented Date>2 days Tacttile Disturbances: 0-None Auditory Disturbances: 0-None Visual Disturbances: 4-Moderate Hallucinations (says she's seen a huge yellow spider) Headache: 1-Very Mild CIWA-Ar Total Score: 23
--- NOTE | 2020-03-22 13:32 | HP ---
CIWA Score Nausea/Vomitin-Int. Nausea w/Dry Heave Muscle Tremors: 4-Moderate,w/Arms Extend Anxiety: 3 Agitation: 3 Paroxysmal Sweats: 1-Minimal Palms Moist Orientation: 3-Disoriented Date>2 days Tacttile Disturbances: 0-None Auditory Disturbances: 0-None Visual Disturbances: 4-Moderate Hallucinations (says she's seen a huge yellow spider) Headache: 1-Very Mild CIWA-Ar Total Score: 23 - Admission Criteria OASAS Guidelines: Admission for Medically Managed Detox: Requires at least one of the followin. CIWA greater than 12 2. Seizures within the past 24 hours 3. Delirium tremens within the past 24 hours 4. Hallucinations within the past 24 hours 5. Acute intervention needed for co occurring medical disorder 6. Acute intervention needed for co occurring psychiatric disorder 7. Severe withdrawal that cannot be handled at a lower level of care (continued vomiting, continued diarrhea, abnormal vital signs) requiring intravenous medication and/or fluids 8. Admitting History and Physical - Admission Chief Complaint: "I want to stop drinking, I want to stop period! I tried stopping on my own and got sick" History of Present Illness: 69 year old female with history of alcohol dependence with withdrawals. S/P hospitalization at [facility] 3 days ago and detoxed. When she left she immediately relapsed. Alcohol: 1/2 pint vodka started at age 28 and last used 3 days ago. 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 Former smoker PMH: HTN, H/O Syncope with normal work up Psurg: Abdominal surgery? Psych: None Lives with , no legal issues. CIWA=23 Breath: 0.000 Meets criteria for detox due to multiple failures in treatment and also poor environment for recovery. She has multiple complications for over drinking with blackouts many times. She also has co-morbid medical disorders. History Source: Patient Limitations to Obtaining History: No Limitations - Past Medical History Cardiovascular: Yes: HTN - Past Surgical History Additional Past Surgical History: ? abdominal surgery. - Smoking History Smoking history: Former smoker Have you smoked in the past 12 months: No If you are a former smoker, when did you quit?: 17 yrs - Alcohol/Substance Use Hx Alcohol Use: Yes History of Substance Use: reports: None - Social History Usual Living Arrangement: Yes: With Significant Other Do you think of yourself as: Straight/Heterosexual ADL: Independent Occupation: retired History of Recent Travel: No Admission ROS [facility] - [facility] Allergies/Adverse Reactions: Allergies Allergy/AdvReac Type Severity Reaction Status Date / Time No Known Allergies Allergy Verified 10/10/19 14:16 Exam Limitations: No Limitations - Ebola screening Have you traveled outside of the country in the last 21 days: No Have you had contact with anyone from an Ebola affected area: No Have you been sick,other than usual withdrawal symptoms: No Do you have a fever: No - Review of Systems Constitutional: Chills, Diaphoresis, Unintentional Wgt. Loss EENT: reports: No Symptoms Reported Respiratory: reports: No Symptoms reported Cardiac: reports: No Symptoms Reported GI: reports: Nausea, Vomiting : reports: No Symptoms Reported Musculoskeletal: reports: No Symptoms Reported Integumentary: reports: No Symptoms Reported Neuro: reports: No Symptoms reported Endocrine: reports: No Symptoms Reported Hematology: reports: No Symptoms Reported Psychiatric: reports: Judgement Intact, Orientated x3, Agitated, Anxious Other Systems: Reviewed and Negative Patient History - Patient Medical History Hx Anemia: No Hx Asthma: No Hx Chronic Obstructive Pulmonary Disease (COPD): No Hx Cancer: No Hx Cardiac Disorders: No Hx Congestive Heart Failure: No Hx Hypertension: Yes Hx Hypercholesterolemia: No Hx Pacemaker: No HX Cerebrovascular Accident: No Hx Seizures: No Hx Dementia: No Hx Diabetes: No Hx Gastrointestinal Disorders: No Hx Liver Disease: No Hx Genitourinary Disorders: No Hx Sexually Transmitted Disorders: No Hx Renal Disease (ESRD): No Hx Thyroid Disease: No Hx Hepatitis C: No Hx Depression: No Hx Suicide Attempt: No Hx Bipolar Disorder: No Hx Schizophrenia: No - Patient Surgical History Past Surgical History: Yes Hx Neurologic Surgery: No Hx Cataract Extraction: No Hx Cardiac Surgery: No Hx Lung Surgery: No Hx Breast Surgery: No Hx Breast Biopsy: No Hx Abdominal Surgery: Yes (43years ago.) Hx Appendectomy: No Hx Cholecystectomy: No Hx Genitourinary Surgery: No Hx Section: No Hx Orthopedic Surgery: No Anesthesia Reaction: No - PPD History Previous Implant?: Yes Documented Results: Negative w/proof Implanted On Prior R Admission?: Yes Date: 09/26/19 Results: 00mm PPD to be Administered?: No - Smoking Cessation Smoking history: Former smoker Have you smoked in the past 12 months: No If you are a former smoker, when did you quit?: 17 yrs Hx Chewing Tobacco Use: No Initiated information on smoking cessation: No - Substances abused Alcohol Substance route: Oral Frequency: Daily Amount used: 1/2 elva bajwa Age of first use: 28 Date of last use: 03/19/20 Admission Physical Exam [facility] - Physical General Appearance: Yes: Moderate Distress, Thin, Tremorous, Irritable, Sweating, Anxious HEENTM: Yes: EOMI, Hearing grossly Normal, Normal ENT Inspection, Normocephalic, Normal Voice, NITZA, Pharynx Normal, Tm's normal Respiratory: Yes: Chest Non-Tender, Lungs Clear, Normal Breath Sounds, No Respiratory Distress, No Accessory Muscle Use Neck: Yes: No masses,lesions,Nodules, Supple, Trachea in good position Breast: Yes: Breast Exam Deferred Cardiology: Yes: Regular Rhythm, S1, S2, Tachycardia Abdominal: Yes: Normal Bowel Sounds, Non Tender, Flat, Soft, Surgical Scar Genitourinary: Yes: Within Normal Limits Back: Yes: Normal Inspection Musculoskeletal: Yes: full range of Motion, Pelvis Stable, Other (uses walker for ambulation) Extremities: Yes: Normal Capillary Refill, Normal Inspection, Normal Range of Motion, Non-Tender Neurological: Yes: 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 NML intact, Fully Oriented, Alert, Motor Strength 5/5, Normal Mood/Affect, Normal Response Integumentary: Yes: Normal Color, Dry, Warm Lymphatic: Yes: Within Normal Limits - Diagnostic (1) Alcohol dependence with withdrawal, uncomplicated Current Visit: No Status: Chronic (2) Hypertension Current Visit: No Status: Chronic Qualifiers: (3) Walker as ambulation aid Current Visit: No Status: Chronic Cleared for Admission [facility] - Detox or Rehab [facility] Level of Care: Medically Managed Detox Regimen/Protocol: Ativan Claeared for Rehab Admission: No Screened but not Admitted - Documentation of Visit Screened but not Admitted: No Breathalyzer - Breathalyzer Breathalyzer: 0 Urine Drug Screen - Test Device Lot number: [id number] Expiration date: 05/06/21 - Control Is test valid?: Yes - Results Drug screen NEGATIVE: No Urine drug screen results: BZO-Benzodiazepines Inpatient Rehab Admission - Rehab Decision to Admit Inpatient rehab admission?: No
[2020-03-22 15:17] VITALS: BMI 21.9
[2020-03-22] MEDS ORDERED: MAGNESIUM HYDROX 2400MG/30ML ORAL SUSPENSION 30 ML CUP PO PRN (15:21)
[2020-03-22] MEDS ORDERED: BISMUTH SUBSALICYLATE 262 MG/15 ML BTL PO PRN (15:21)
[2020-03-22] MEDS ORDERED: ACETAMINOPHEN 325 MG TABLET (FP) PO PRN ×2 (15:21)
[2020-03-22] MEDS ORDERED: MENTHOL/PHENOL 1 EACH UD MM PRN (15:21)
[2020-03-22] MEDS ORDERED: MAG HYDROX/AL HYDROX/SIMETH 30 ML UNIT-DOSE CUP PO PRN (15:21)
[2020-03-22] MEDS ORDERED: chlordiazePOXIDE HCL 25 MG CAPSULE PO PRN (15:21)
[2020-03-22] MEDS ORDERED: ONDANSETRON *ODT* 4 MG TABLET SL ONE (15:21)
[2020-03-22] MEDS ORDERED: MAGNESIUM CITRATE 300 ML BOTTLE PO PRN (15:21)
[2020-03-22] MEDS ORDERED: diazePAM 5 MG TABLET PO ONE ×2 (15:24)
[2020-03-22] MEDS: hydrOXYzine PAMOATE 25 MG CAPSULE (FP) PO SCH ×2 (17:02→21:54)
[2020-03-22] MEDS: chlordiazePOXIDE HCL 25 MG CAPSULE PO SCH ×2 (17:02→22:17)
[2020-03-22] MEDS: PRENATAL VITAMINS W/ FOLIC ACID TABLET (FP) PO SCH (17:02)
[2020-03-22] MEDS: MELATONIN 5 MG TABLETS PO SCH (21:50)
[2020-03-22] MEDS: THIAMINE HCL 100 MG TABLET (FP) PO SCH (21:50)
[2020-03-23] MEDS: chlordiazePOXIDE HCL 25 MG CAPSULE PO SCH ×4 (06:09→22:04)
[2020-03-23] MEDS: hydrOXYzine PAMOATE 25 MG CAPSULE (FP) PO SCH ×2 (06:09→10:42)
[2020-03-23 10:21] LABS: HEMATOCRIT 26.6 % (32.4-45.2); HEMOGLOBIN 8.9 GM/dL (10.7-15.3); MCH 31.3 pg (25.7-33.7); MCHC 33.3 g/dl (32.0-36.0); MEAN CELL VOLUME 94.1 fl (80-96); MEAN PLT VOLUME 7.3 fl (7.5-11.1); PLATELET COUNT 142 K/MM3 (134-434); RBC 2.83 M/mm3 (3.60-5.2); RDW 16.6 % (11.6-15.6); WHITE BLOOD COUNT 4.1 K/mm3 (4.0-10.0)
[2020-03-23 10:29] LABS: ALBUMIN 3.6 g/dl (3.4-5.0); BILIRUBIN,TOTAL 0.7 mg/dL (0.2-1); BLOOD UREA NITROGEN 12.7 mg/dL (7-18); CALCIUM 9.6 mg/dL (8.5-10.1); CREATININE 1.1 mg/dL (0.55-1.3); POTASSIUM 4.1 mmol/L (3.5-5.1); TOT PROT 7.5 g/dl (6.4-8.2)
[2020-03-23] MEDS: PRENATAL VITAMINS W/ FOLIC ACID TABLET (FP) PO SCH (10:39)
[2020-03-23] MEDS ORDERED: hydrOXYzine PAMOATE 25 MG CAPSULE (FP) PO PRN (11:27)
--- NOTE | 2020-03-23 12:20 | PN ---
S CIWA - CIWA Score Nausea/Vomitin-No Nausea/No Vomiting Muscle Tremors: 3 Anxiety: 3 Agitation: 3 Paroxysmal Sweats: 3 Orientation: 0-Oriented Tacttile Disturbances: 0-None Auditory Disturbances: 0-None Visual Disturbances: 0-None Headache: 0-None Present CIWA-Ar Total Score: 12 S Progress Note (SOAP) Subjective: right shoulder pain sweats light headed shakes Objective: 03/23/20 12:16 Vital Signs Temperature 97.1 F L 03/23/20 09:17 Pulse Rate 96 H 03/23/20 09:17 Respiratory Rate 03/23/20 09:17 Blood Pressure 117/69 03/23/20 09:17 O2 Sat by Pulse Oximetry (%) 98 03/23/20 06:05 Laboratory Tests 03/23/20 03/23/20 07:30 07:30 WBC 4.1 RBC 2.83 L Hgb 8.9 L Hct 26.6 L MCV 94.1 MCH 31.3 MCHC 33.3 RDW 16.6 H Plt Count 142 MPV 7.3 L Sodium 136 Potassium 4.1 Chloride 98 Carbon Dioxide 29 Anion Gap 9 BUN 12.7 Creatinine 1.1 Est GFR (CKD-EPI)AfAm 59.32 Est GFR (CKD-EPI)NonAf 51.18 Random Glucose 87 Calcium 9.6 Total Bilirubin 0.7 AST 77 H ALT 29 Alkaline Phosphatase 101 Total Protein 7.5 Albumin 3.6 labs noted aaox3 ambulating with the use of wheelchair no acute distress Assessment: 03/23/20 12:17 withdrawals sx healing process to right carrie-orbital area noted. pt states she fell in her home a week ago after drinking. she failed to go to ED, states she didn't want to go. pt denies of any NEUMANN, blurred vision, Plan: continue detox increase fluids lidocaine patches motrin/tylenol prn
[2020-03-23] MEDS: LIDOCAINE 5% TOPICAL PATCH TP SCH (13:06)
[2020-03-23] MEDS: IBUPROFEN 400 MG TABLET (FP) PO PRN (18:01)
[2020-03-23] MEDS: METHOCARBAMOL 500 MG TABLET PO PRN (19:51)
[2020-03-23] MEDS: THIAMINE HCL 100 MG TABLET (FP) PO SCH (22:04)
[2020-03-23] MEDS: MELATONIN 5 MG TABLETS PO SCH (22:05)
[2020-03-23] MEDS: LIDOCAINE PATCH REMOVAL MC SCH (22:08)
[2020-03-24] MEDS: chlordiazePOXIDE HCL 25 MG CAPSULE PO SCH ×4 (05:32→22:33)
[2020-03-24] MEDS: LIDOCAINE 5% TOPICAL PATCH TP SCH (10:07)
[2020-03-24] MEDS: PRENATAL VITAMINS W/ FOLIC ACID TABLET (FP) PO SCH (10:08)
--- NOTE | 2020-03-24 12:00 | PN ---
S CIWA - CIWA Score Nausea/Vomitin-No Nausea/No Vomiting Muscle Tremors: 2 Anxiety: 2 Agitation: 2 Paroxysmal Sweats: 1-Minimal Palms Moist Orientation: 0-Oriented Tacttile Disturbances: 0-None Auditory Disturbances: 0-None Visual Disturbances: 0-None Headache: 0-None Present CIWA-Ar Total Score: 7 BHS Progress Note (SOAP) Subjective: body aches sweats agitation Objective: 03/24/20 12:00 Vital Signs Temperature 97.3 F L 03/24/20 08:31 Pulse Rate 80 03/24/20 08:31 Respiratory Rate 17 03/24/20 08:31 Blood Pressure 121/72 03/24/20 08:31 O2 Sat by Pulse Oximetry (%) 100 03/24/20 06:17 Laboratory Tests 03/22/20 03/23/20 03/23/20 15:36 07:30 07:30 WBC 4.1 RBC 2.83 L Hgb 8.9 L Hct 26.6 L MCV 94.1 MCH 31.3 MCHC 33.3 RDW 16.6 H Plt Count 142 MPV 7.3 L Sodium 136 Potassium 4.1 Chloride 98 Carbon Dioxide 29 Anion Gap 9 BUN 12.7 Creatinine 1.1 Est GFR (CKD-EPI)AfAm 59.32 Est GFR (CKD-EPI)NonAf 51.18 Random Glucose 87 Calcium 9.6 Total Bilirubin 0.7 AST 77 H ALT 29 Alkaline Phosphatase 101 Total Protein 7.5 Albumin 3.6 Syphilis Serology COVID-19 (MIGUEL) Not detected HIV Ag/Ab Combo Qual 03/23/20 03/23/20 07:30 07:30 WBC RBC Hgb Hct MCV MCH MCHC RDW Plt Count MPV Sodium Potassium Chloride Carbon Dioxide Anion Gap BUN Creatinine Est GFR (CKD-EPI)AfAm Est GFR (CKD-EPI)NonAf Random Glucose Calcium Total Bilirubin AST ALT Alkaline Phosphatase Total Protein Albumin Syphilis Serology Non-reactive COVID-19 (MIGUEL) HIV Ag/Ab Combo Qual Negative labs noted low H:H will start iron supplement aaox3 ambulating in wheelchair safely no acute distress Assessment: 03/24/20 12:03 withdrawals Plan: continue detox irons supplement ordered labs repeated
--- NOTE | 2020-03-24 13:53 | PN ---
S Progress Note Note: Due to pt chronic condition to alcohol dependence, pt is at risk for relapse, seizures, DT's, OD and or loss. Pt has a h/o of fall and most recent fall prior to admission to our facility it will benefit pt to stay until Saturday for a continuity of care and transfer from detox to rehab.
[2020-03-24] MEDS: FERROUS SO4 325 MG TABLET (FP) PO SCH (17:46)
[2020-03-24] MEDS: IBUPROFEN 400 MG TABLET (FP) PO PRN (21:31)
[2020-03-24] MEDS: THIAMINE HCL 100 MG TABLET (FP) PO SCH (21:32)
[2020-03-24] MEDS: LIDOCAINE PATCH REMOVAL MC SCH (22:32)
[2020-03-24] MEDS: MELATONIN 5 MG TABLETS PO SCH (22:32)
[2020-03-25] MEDS ORDERED: chlordiazePOXIDE HCL 10 MG CAPSULE PO PRN
[2020-03-25] MEDS: chlordiazePOXIDE HCL 10 MG CAPSULE PO SCH ×4 (05:51→22:12)
[2020-03-25] MEDS: FERROUS SO4 325 MG TABLET (FP) PO SCH ×3 (07:13→17:31)
--- NOTE | 2020-03-25 10:18 | PN ---
S CIWA - CIWA Score Nausea/Vomitin-No Nausea/No Vomiting Muscle Tremors: 3 Anxiety: 3 Agitation: 3 Paroxysmal Sweats: No Perspiration Orientation: 1-Uncertain about Date Tacttile Disturbances: 0-None Auditory Disturbances: 0-None Visual Disturbances: 0-None Headache: 0-None Present CIWA-Ar Total Score: 10 BHS Progress Note (SOAP) Subjective: PATIENT ADMITTED FOR ALCOHOL WITHDRAWAL SYMPTOMS. SHE C/O INTERMITTENT SHAKES, OCCASIONAL NIGHT SWEATS AND ANXIETY. Objective: 03/25/20 10:15 Vital Signs Temperature 97.1 F L 03/25/20 08:32 Pulse Rate 80 03/25/20 08:32 Respiratory Rate 18 03/25/20 08:32 Blood Pressure 119/92 03/25/20 08:32 O2 Sat by Pulse Oximetry (%) 99 03/25/20 06:11 Laboratory Tests 03/22/20 03/23/20 03/23/20 15:36 07:30 07:30 WBC 4.1 RBC 2.83 L Hgb 8.9 L Hct 26.6 L MCV 94.1 MCH 31.3 MCHC 33.3 RDW 16.6 H Plt Count 142 MPV 7.3 L Sodium 136 Potassium 4.1 Chloride 98 Carbon Dioxide 29 Anion Gap 9 BUN 12.7 Creatinine 1.1 Est GFR (CKD-EPI)AfAm 59.32 Est GFR (CKD-EPI)NonAf 51.18 Random Glucose 87 Calcium 9.6 Total Bilirubin 0.7 AST 77 H ALT 29 Alkaline Phosphatase 101 Total Protein 7.5 Albumin 3.6 Syphilis Serology COVID-19 (MIGUEL) Not detected HIV Ag/Ab Combo Qual 03/23/20 03/23/20 07:30 07:30 WBC RBC Hgb Hct MCV MCH MCHC RDW Plt Count MPV Sodium Potassium Chloride Carbon Dioxide Anion Gap BUN Creatinine Est GFR (CKD-EPI)AfAm Est GFR (CKD-EPI)NonAf Random Glucose Calcium Total Bilirubin AST ALT Alkaline Phosphatase Total Protein Albumin Syphilis Serology Non-reactive COVID-19 (MIGUEL) HIV Ag/Ab Combo Qual Negative PE ALERT AND ORIENTED X 3, ALTHOUGH FORGETFUL WITH DATE SKIN WARM AND DRY +PERRLA EOMS INTACT BL NECK SUPPLE, NO JVD EXT FULL ROM, +TREMORS (WHILE EATING NOTED TREMORS) ANXIOUS, MILD RESTLESSNESS AMB AD ROSE NO SI/HI REPORTED Assessment: 03/25/20 10:17 ETOH WITHDRAWAL SX ANEMIA 03/25/20 10:18 Plan: CONTINUE DETOX ENCOURAGE ORAL FLUIDS REPEAT CBC PENDING MONITOR CLINICALLY
[2020-03-25] MEDS: PRENATAL VITAMINS W/ FOLIC ACID TABLET (FP) PO SCH (10:21)
[2020-03-25] MEDS: LIDOCAINE 5% TOPICAL PATCH TP SCH (11:18)
[2020-03-25 14:41] LABS: EOS % 12.2 % (0-4.5); HEMATOCRIT 28.8 % (32.4-45.2); HEMOGLOBIN 9.6 GM/dL (10.7-15.3); LYMPH % 15.9 % (8-40); MCHC 33.2 g/dl (32.0-36.0); MEAN CELL VOLUME 96.4 fl (80-96); MEAN PLT VOLUME 8.3 fl (7.5-11.1); NEUT % 60.9 % (42.8-82.8); PLATELET COUNT 166 K/MM3 (134-434); RBC 2.99 M/mm3 (3.60-5.2); RDW 17.1 % (11.6-15.6); WHITE BLOOD COUNT 4.5 K/mm3 (4.0-10.0)
[2020-03-25] MEDS: IBUPROFEN 400 MG TABLET (FP) PO PRN (15:52)
[2020-03-25] MEDS: MELATONIN 5 MG TABLETS PO SCH (22:12)
[2020-03-25] MEDS: THIAMINE HCL 100 MG TABLET (FP) PO SCH (22:12)
[2020-03-25] MEDS: LIDOCAINE PATCH REMOVAL MC SCH (22:13)
[2020-03-26] MEDS: chlordiazePOXIDE HCL 10 MG CAPSULE PO SCH ×2 (05:52→18:29)
[2020-03-26] MEDS: FERROUS SO4 325 MG TABLET (FP) PO SCH ×3 (07:44→18:29)
[2020-03-26] MEDS: LIDOCAINE 5% TOPICAL PATCH TP SCH (10:25)
[2020-03-26] MEDS: PRENATAL VITAMINS W/ FOLIC ACID TABLET (FP) PO SCH (10:25)
--- NOTE | 2020-03-26 12:15 | PN ---
S CIWA - CIWA Score Nausea/Vomitin-No Nausea/No Vomiting Muscle Tremors: None Anxiety: 2 Agitation: 0-Normal Activity Paroxysmal Sweats: 2 Orientation: 0-Oriented Tacttile Disturbances: 0-None Auditory Disturbances: 0-None Visual Disturbances: 0-None Headache: 0-None Present CIWA-Ar Total Score: 4 BHS Progress Note (SOAP) Subjective: c/o mild withdrawal symptoms. Objective: 03/26/20 12:17 Vital Signs 03/26/20 03/26/20 05:43 08:50 Temperature 97.5 F L 96.8 F L Pulse Rate 70 78 Respiratory 16 18 Rate Blood Pressure 104/67 111/79 O2 Sat by Pulse 97 Oximetry (%) Laboratory Last Values WBC 4.5 K/mm3 (4.0-10.0) 03/25/20 09:15 RBC 2.99 M/mm3 (3.60-5.2) L 03/25/20 09:15 Hgb 9.6 GM/dL (10.7-15.3) L 03/25/20 09:15 Hct 28.8 % (32.4-45.2) L 03/25/20 09:15 MCV 96.4 fl (80-96) H 03/25/20 09:15 MCH 32.0 pg (25.7-33.7) 03/25/20 09:15 MCHC 33.2 g/dl (32.0-36.0) 03/25/20 09:15 RDW 17.1 % (11.6-15.6) H 03/25/20 09:15 Plt Count 166 K/MM3 (134-434) 03/25/20 09:15 MPV 8.3 fl (7.5-11.1) D 03/25/20 09:15 Absolute Neuts (auto) 2.7 K/mm3 (1.5-8.0) 03/25/20 09:15 Neutrophils % 60.9 % (42.8-82.8) 03/25/20 09:15 Lymphocytes % 15.9 % (8-40) D 03/25/20 09:15 Monocytes % 10.0 % (3.8-10.2) 03/25/20 09:15 Eosinophils % 12.2 % (0-4.5) H D 03/25/20 09:15 Basophils % 1.0 % (0-2.0) 03/25/20 09:15 Nucleated RBC % 0 % (0-0) 03/25/20 09:15 Sodium 136 mmol/L (136-145) 03/23/20 07:30 Potassium 4.1 mmol/L (3.5-5.1) 03/23/20 07:30 Chloride 98 mmol/L (98-107) 03/23/20 07:30 Carbon Dioxide 29 mmol/L (21-32) 03/23/20 07:30 Anion Gap 9 MMOL/L (8-16) 03/23/20 07:30 BUN 12.7 mg/dL (7-18) 03/23/20 07:30 Creatinine 1.1 mg/dL (0.55-1.3) 03/23/20 07:30 Est GFR (CKD-EPI)AfAm 59.32 03/23/20 07:30 Est GFR (CKD-EPI)NonAf 51.18 03/23/20 07:30 Random Glucose 87 mg/dL (74-106) 03/23/20 07:30 Calcium 9.6 mg/dL (8.5-10.1) 03/23/20 07:30 Total Bilirubin 0.7 mg/dL (0.2-1) 03/23/20 07:30 AST 77 U/L (15-37) H 03/23/20 07:30 ALT 29 U/L (13-61) 03/23/20 07:30 Alkaline Phosphatase 101 U/L (45-117) 03/23/20 07:30 Total Protein 7.5 g/dl (6.4-8.2) 03/23/20 07:30 Albumin 3.6 g/dl (3.4-5.0) 03/23/20 07:30 Syphilis Serology Non-reactive (NONREACTIVE) 03/23/20 07:30 COVID-19 (MIGUEL) Not detected (Not Detected) 03/22/20 15:36 HIV Ag/Ab Combo Qual Negative (NEGATIVE) 03/23/20 07:30 Labs noted. Assessment: 03/26/20 12:17 AOx3, in no acute respiratory distress. Full ROM, ambulating in the unit. Mild Withdrawal symptoms. Plan: continue detox.
[2020-03-26] MEDS: THIAMINE HCL 100 MG TABLET (FP) PO SCH (22:23)
[2020-03-26] MEDS: LIDOCAINE PATCH REMOVAL MC SCH (22:23)
[2020-03-26] MEDS: MELATONIN 5 MG TABLETS PO SCH (22:24)
[2020-03-27] MEDS ORDERED: chlordiazePOXIDE HCL 10 MG CAPSULE PO ONE (05:00)
[2020-03-27] MEDS: FERROUS SO4 325 MG TABLET (FP) PO SCH ×3 (07:56→18:06)
[2020-03-27] MEDS: PRENATAL VITAMINS W/ FOLIC ACID TABLET (FP) PO SCH (09:24)
[2020-03-27] MEDS: LIDOCAINE 5% TOPICAL PATCH TP SCH (09:25)
[2020-03-27] MEDS: IBUPROFEN 400 MG TABLET (FP) PO PRN (14:23)
--- NOTE | 2020-03-27 16:10 | PN ---
S CIWA - CIWA Score Nausea/Vomitin-No Nausea/No Vomiting Muscle Tremors: None Anxiety: 1-Mildly Anxious Agitation: 0-Normal Activity Paroxysmal Sweats: 1-Minimal Palms Moist Orientation: 0-Oriented Tacttile Disturbances: 0-None Auditory Disturbances: 0-None Visual Disturbances: 0-None Headache: 0-None Present CIWA-Ar Total Score: 2 BHS Progress Note (SOAP) Subjective: mild withdrawal symptoms. Objective: 03/27/20 16:07 Vital Signs 03/27/20 03/27/20 03/27/20 08:50 11:58 15:25 Temperature 96.8 F L 97.3 F L Pulse Rate 79 80 Respiratory 16 17 Rate Blood Pressure 121/80 142/94 O2 Sat by Pulse 95 Oximetry (%) Laboratory Last Values WBC 4.5 K/mm3 (4.0-10.0) 03/25/20 09:15 RBC 2.99 M/mm3 (3.60-5.2) L 03/25/20 09:15 Hgb 9.6 GM/dL (10.7-15.3) L 03/25/20 09:15 Hct 28.8 % (32.4-45.2) L 03/25/20 09:15 MCV 96.4 fl (80-96) H 03/25/20 09:15 MCH 32.0 pg (25.7-33.7) 03/25/20 09:15 MCHC 33.2 g/dl (32.0-36.0) 03/25/20 09:15 RDW 17.1 % (11.6-15.6) H 03/25/20 09:15 Plt Count 166 K/MM3 (134-434) 03/25/20 09:15 MPV 8.3 fl (7.5-11.1) D 03/25/20 09:15 Absolute Neuts (auto) 2.7 K/mm3 (1.5-8.0) 03/25/20 09:15 Neutrophils % 60.9 % (42.8-82.8) 03/25/20 09:15 Lymphocytes % 15.9 % (8-40) D 03/25/20 09:15 Monocytes % 10.0 % (3.8-10.2) 03/25/20 09:15 Eosinophils % 12.2 % (0-4.5) H D 03/25/20 09:15 Basophils % 1.0 % (0-2.0) 03/25/20 09:15 Nucleated RBC % 0 % (0-0) 03/25/20 09:15 Sodium 136 mmol/L (136-145) 03/23/20 07:30 Potassium 4.1 mmol/L (3.5-5.1) 03/23/20 07:30 Chloride 98 mmol/L (98-107) 03/23/20 07:30 Carbon Dioxide 29 mmol/L (21-32) 03/23/20 07:30 Anion Gap 9 MMOL/L (8-16) 03/23/20 07:30 BUN 12.7 mg/dL (7-18) 03/23/20 07:30 Creatinine 1.1 mg/dL (0.55-1.3) 03/23/20 07:30 Est GFR (CKD-EPI)AfAm 59.32 03/23/20 07:30 Est GFR (CKD-EPI)NonAf 51.18 03/23/20 07:30 Random Glucose 87 mg/dL (74-106) 03/23/20 07:30 Calcium 9.6 mg/dL (8.5-10.1) 03/23/20 07:30 Total Bilirubin 0.7 mg/dL (0.2-1) 03/23/20 07:30 AST 77 U/L (15-37) H 03/23/20 07:30 ALT 29 U/L (13-61) 03/23/20 07:30 Alkaline Phosphatase 101 U/L (45-117) 03/23/20 07:30 Total Protein 7.5 g/dl (6.4-8.2) 03/23/20 07:30 Albumin 3.6 g/dl (3.4-5.0) 03/23/20 07:30 Syphilis Serology Non-reactive (NONREACTIVE) 03/23/20 07:30 COVID-19 (MIGUEL) Not detected (Not Detected) 03/22/20 15:36 HIV Ag/Ab Combo Qual Negative (NEGATIVE) 03/23/20 07:30 Labs noted. Assessment: 03/27/20 16:08 AOX3, in no acute respiratory distress. Full ROM, ambulating in the unit. Mild withdrawal symptoms. Pt has completed the detox protocol. Plan: Transfer to [address] [place] [address] for continued management.
[2020-03-27] MEDS: LIDOCAINE PATCH REMOVAL MC SCH (21:18)
[2020-03-27] MEDS: THIAMINE HCL 100 MG TABLET (FP) PO SCH (21:18)
[2020-03-27] MEDS: MELATONIN 5 MG TABLETS PO SCH (21:18)
[2020-03-28] MEDS: FERROUS SO4 325 MG TABLET (FP) PO SCH ×3 (07:04→17:20)
[2020-03-28] MEDS: METHOCARBAMOL 500 MG TABLET PO PRN (09:52)
[2020-03-28] MEDS: PRENATAL VITAMINS W/ FOLIC ACID TABLET (FP) PO SCH (09:52)
[2020-03-28] MEDS: LIDOCAINE 5% TOPICAL PATCH TP SCH (09:53)
[2020-03-28] MEDS: IBUPROFEN 400 MG TABLET (FP) PO PRN (09:53)
[2020-03-28] MEDS: THIAMINE HCL 100 MG TABLET (FP) PO SCH (21:23)
[2020-03-28] MEDS: LIDOCAINE PATCH REMOVAL MC SCH (21:23)
[2020-03-28] MEDS: MELATONIN 5 MG TABLETS PO SCH (21:23)
[2020-03-29] MEDS: FERROUS SO4 325 MG TABLET (FP) PO SCH ×3 (07:05→17:00)
[2020-03-29] MEDS: IBUPROFEN 400 MG TABLET (FP) PO PRN (08:48)
[2020-03-29] MEDS: PRENATAL VITAMINS W/ FOLIC ACID TABLET (FP) PO SCH (10:01)
[2020-03-29] MEDS: LIDOCAINE 5% TOPICAL PATCH TP SCH (10:01)
[2020-03-29] MEDS: THIAMINE HCL 100 MG TABLET (FP) PO SCH (21:31)
[2020-03-29] MEDS: MELATONIN 5 MG TABLETS PO SCH (21:31)
[2020-03-29] MEDS: LIDOCAINE PATCH REMOVAL MC SCH (21:32)
[2020-03-30] MEDS: FERROUS SO4 325 MG TABLET (FP) PO SCH ×3 (07:09→17:34)
[2020-03-30] MEDS ORDERED: MASKS NR ONE (09:19)
[2020-03-30] MEDS: LIDOCAINE 5% TOPICAL PATCH TP SCH (09:57)
[2020-03-30] MEDS: PRENATAL VITAMINS W/ FOLIC ACID TABLET (FP) PO SCH (09:57)
[2020-03-30] MEDS: THIAMINE HCL 100 MG TABLET (FP) PO SCH (21:45)
[2020-03-30] MEDS: MELATONIN 5 MG TABLETS PO SCH (21:45)
[2020-03-30] MEDS: IBUPROFEN 400 MG TABLET (FP) PO PRN (21:46)
[2020-03-30] MEDS: LIDOCAINE PATCH REMOVAL MC SCH (21:46)
[2020-03-31] MEDS: FERROUS SO4 325 MG TABLET (FP) PO SCH ×3 (07:11→18:01)
[2020-03-31] MEDS: PRENATAL VITAMINS W/ FOLIC ACID TABLET (FP) PO SCH (10:18)
[2020-03-31] MEDS: LIDOCAINE 5% TOPICAL PATCH TP SCH (10:19)
[2020-03-31] MEDS: METHOCARBAMOL 500 MG TABLET PO PRN (10:20)
[2020-03-31] MEDS: LIDOCAINE PATCH REMOVAL MC SCH (21:21)
[2020-03-31] MEDS: MELATONIN 5 MG TABLETS PO SCH (21:21)
[2020-03-31] MEDS: THIAMINE HCL 100 MG TABLET (FP) PO SCH (21:21)
[2020-04-01] MEDS: FERROUS SO4 325 MG TABLET (FP) PO SCH ×3 (07:01→18:06)
[2020-04-01] MEDS: LIDOCAINE 5% TOPICAL PATCH TP SCH (10:17)
[2020-04-01] MEDS: PRENATAL VITAMINS W/ FOLIC ACID TABLET (FP) PO SCH (10:17)
[2020-04-01] MEDS: MELATONIN 5 MG TABLETS PO SCH (21:32)
[2020-04-01] MEDS: THIAMINE HCL 100 MG TABLET (FP) PO SCH (21:32)
[2020-04-01] MEDS: LIDOCAINE PATCH REMOVAL MC SCH (21:33)
[2020-04-02] MEDS: FERROUS SO4 325 MG TABLET (FP) PO SCH ×3 (07:21→18:25)
[2020-04-02] MEDS: PRENATAL VITAMINS W/ FOLIC ACID TABLET (FP) PO SCH (10:14)
[2020-04-02] MEDS: LIDOCAINE 5% TOPICAL PATCH TP SCH (10:14)
[2020-04-02] MEDS: LIDOCAINE PATCH REMOVAL MC SCH (21:29)
[2020-04-02] MEDS: MELATONIN 5 MG TABLETS PO SCH (21:29)
[2020-04-02] MEDS: THIAMINE HCL 100 MG TABLET (FP) PO SCH (21:29)
[2020-04-03] MEDS: FERROUS SO4 325 MG TABLET (FP) PO SCH ×3 (07:22→17:20)
[2020-04-03] MEDS: PRENATAL VITAMINS W/ FOLIC ACID TABLET (FP) PO SCH (09:34)
[2020-04-03] MEDS: LIDOCAINE 5% TOPICAL PATCH TP SCH (09:34)
[2020-04-03] MEDS: hydrOXYzine PAMOATE 25 MG CAPSULE (FP) PO PRN (15:45)
[2020-04-03] MEDS: LIDOCAINE PATCH REMOVAL MC SCH (21:48)
[2020-04-03] MEDS: THIAMINE HCL 100 MG TABLET (FP) PO SCH (21:48)
[2020-04-03] MEDS: MELATONIN 5 MG TABLETS PO SCH (21:48)
[2020-04-04] MEDS: FERROUS SO4 325 MG TABLET (FP) PO SCH ×3 (07:11→17:57)
[2020-04-04] MEDS: hydrOXYzine PAMOATE 25 MG CAPSULE (FP) PO PRN ×2 (10:15→21:43)
[2020-04-04] MEDS: PRENATAL VITAMINS W/ FOLIC ACID TABLET (FP) PO SCH (10:15)
[2020-04-04] MEDS: LIDOCAINE 5% TOPICAL PATCH TP SCH (10:17)
[2020-04-04] MEDS: IBUPROFEN 400 MG TABLET (FP) PO PRN (14:10)
[2020-04-04] MEDS: LIDOCAINE PATCH REMOVAL MC SCH (21:43)
[2020-04-04] MEDS: THIAMINE HCL 100 MG TABLET (FP) PO SCH (21:43)
[2020-04-04] MEDS: MELATONIN 5 MG TABLETS PO SCH (21:43)
[2020-04-04] MEDS: METHOCARBAMOL 500 MG TABLET PO PRN (21:43)
[2020-04-05] MEDS: FERROUS SO4 325 MG TABLET (FP) PO SCH ×3 (07:27→18:17)
[2020-04-05] MEDS: IBUPROFEN 400 MG TABLET (FP) PO PRN (10:11)
[2020-04-05] MEDS: LIDOCAINE 5% TOPICAL PATCH TP SCH (10:11)
[2020-04-05] MEDS: PRENATAL VITAMINS W/ FOLIC ACID TABLET (FP) PO SCH (10:11)
[2020-04-05] MEDS: hydrOXYzine PAMOATE 25 MG CAPSULE (FP) PO PRN (10:11)
[2020-04-05] MEDS: MELATONIN 5 MG TABLETS PO SCH (21:34)
[2020-04-05] MEDS: THIAMINE HCL 100 MG TABLET (FP) PO SCH (21:34)
[2020-04-05] MEDS: LIDOCAINE PATCH REMOVAL MC SCH (21:34)
[2020-04-06] MEDS: FERROUS SO4 325 MG TABLET (FP) PO SCH ×3 (07:32→17:30)
[2020-04-06] MEDS: PRENATAL VITAMINS W/ FOLIC ACID TABLET (FP) PO SCH (09:59)
[2020-04-06] MEDS: LIDOCAINE 5% TOPICAL PATCH TP SCH (09:59)
[2020-04-06] MEDS: MELATONIN 5 MG TABLETS PO SCH (21:27)
[2020-04-06] MEDS: LIDOCAINE PATCH REMOVAL MC SCH (21:27)
[2020-04-06] MEDS: THIAMINE HCL 100 MG TABLET (FP) PO SCH (21:27)
[2020-04-07] MEDS: FERROUS SO4 325 MG TABLET (FP) PO SCH ×3 (07:26→17:15)
[2020-04-07] MEDS: LIDOCAINE 5% TOPICAL PATCH TP SCH (09:55)
[2020-04-07] MEDS: PRENATAL VITAMINS W/ FOLIC ACID TABLET (FP) PO SCH (09:55)
[2020-04-07] MEDS: hydrOXYzine PAMOATE 25 MG CAPSULE (FP) PO PRN (09:55)
[2020-04-07] MEDS: LIDOCAINE PATCH REMOVAL MC SCH (21:37)
[2020-04-07] MEDS: THIAMINE HCL 100 MG TABLET (FP) PO SCH (21:37)
[2020-04-07] MEDS: MELATONIN 5 MG TABLETS PO SCH (21:37)
[2020-04-08] MEDS: FERROUS SO4 325 MG TABLET (FP) PO SCH ×3 (07:06→17:30)
[2020-04-08] MEDS: IBUPROFEN 400 MG TABLET (FP) PO PRN (08:57)
[2020-04-08] MEDS: LIDOCAINE 5% TOPICAL PATCH TP SCH (11:06)
[2020-04-08] MEDS: PRENATAL VITAMINS W/ FOLIC ACID TABLET (FP) PO SCH (11:06)
[2020-04-08] MEDS: MELATONIN 5 MG TABLETS PO SCH (21:40)
[2020-04-08] MEDS: THIAMINE HCL 100 MG TABLET (FP) PO SCH (21:40)
[2020-04-08] MEDS: LIDOCAINE PATCH REMOVAL MC SCH (21:41)
[2020-04-09] MEDS: FERROUS SO4 325 MG TABLET (FP) PO SCH ×3 (07:03→17:24)
[2020-04-09] MEDS: LIDOCAINE 5% TOPICAL PATCH TP SCH (10:33)
[2020-04-09] MEDS: PRENATAL VITAMINS W/ FOLIC ACID TABLET (FP) PO SCH (10:33)
[2020-04-09] MEDS: THIAMINE HCL 100 MG TABLET (FP) PO SCH (22:08)
[2020-04-09] MEDS: MELATONIN 5 MG TABLETS PO SCH (22:08)
[2020-04-09] MEDS: LIDOCAINE PATCH REMOVAL MC SCH (22:58)
[2020-04-10] MEDS: FERROUS SO4 325 MG TABLET (FP) PO SCH ×3 (07:04→17:49)
[2020-04-10] MEDS: LIDOCAINE 5% TOPICAL PATCH TP SCH (09:43)
[2020-04-10] MEDS: PRENATAL VITAMINS W/ FOLIC ACID TABLET (FP) PO SCH (09:43)
[2020-04-10] MEDS: hydrOXYzine PAMOATE 25 MG CAPSULE (FP) PO PRN (09:43)
[2020-04-10] MEDS: IBUPROFEN 400 MG TABLET (FP) PO PRN (09:44)
[2020-04-10] MEDS: MELATONIN 5 MG TABLETS PO SCH (22:55)
[2020-04-10] MEDS: THIAMINE HCL 100 MG TABLET (FP) PO SCH (22:55)
[2020-04-10] MEDS: LIDOCAINE PATCH REMOVAL MC SCH (22:55)
[2020-04-11] MEDS: FERROUS SO4 325 MG TABLET (FP) PO SCH ×3 (07:04→16:53)
[2020-04-11] MEDS: PRENATAL VITAMINS W/ FOLIC ACID TABLET (FP) PO SCH (09:37)
[2020-04-11] MEDS: LIDOCAINE 5% TOPICAL PATCH TP SCH (09:37)
[2020-04-11] MEDS: hydrOXYzine PAMOATE 25 MG CAPSULE (FP) PO PRN (09:37)
[2020-04-11] MEDS: IBUPROFEN 400 MG TABLET (FP) PO PRN (09:38)
[2020-04-11] MEDS: LIDOCAINE PATCH REMOVAL MC SCH (21:33)
[2020-04-11] MEDS: THIAMINE HCL 100 MG TABLET (FP) PO SCH (21:33)
[2020-04-11] MEDS: MELATONIN 5 MG TABLETS PO SCH (21:33)
[2020-04-12 07:00] VITALS: BP 142/82; PULSE 89; TEMP 97.3
[2020-04-12] MEDS: FERROUS SO4 325 MG TABLET (FP) PO SCH (07:13)
--- NOTE | 2020-04-12 09:32 | DS ---
[facility] Rehab Discharge Summary - [facility] Rehab Discharge Summary Admission Date: 03/22/20 Discharge Date: 04/12/20 - History Present History: Alcohol dependence Pertinent Past History: 9 year old female with history of alcohol dependence with withdrawals. S/P hospitalization at [facility]. When she left she immediately relapsed. Alcohol: 1/2 pint vodka started at age 28. 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 Former smoker PMH: HTN, H/O Syncope with normal work up Psurg: Abdominal surgery? Psych: None Lives with , no legal issues. - Discharge Physical Exam Vital Signs: Vital Signs Temperature 97.3 F L 04/12/20 06:58 Pulse Rate 89 04/12/20 06:58 Respiratory Rate 18 04/12/20 06:58 Blood Pressure 142/82 04/12/20 06:58 O2 Sat by Pulse Oximetry (%) 96 04/12/20 06:58 Pertinent Admission Physical Exam Findings: Physical General Appearance: No apparent distress HEENTM: Normocephalic, Respiratory: No Respiratory Distress, No Accessory Muscle Use Neck: Supple, Trachea in good positioned Cardiology: S1 S2 Abdominal: +Bowel Sounds, Musculoskeletal: Limited lower extremity ROM, Needs wheelchair or walker for stable gait and support Neurological: Yes: hand edge bander II-XII NML intact, - Treatment Discharge Condition: Outpatient referral accepted (Medically stable for discharge. Patient will return to [facility] for aftercare) Hospital Course: Patient attended groups, had 1:1 with her counselor. She was adherent to her medication regimen and treatment plan. She had no acute or urgent medical problems while in rehab. - Medication Discharge Medications: Ambulatory Orders Acetaminophen [Tylenol] 650 mg PO PRN PRN 03/22/20 - Medication-Assisted Treatment (MAT) Medication-Assisted Treatment (MAT): No - Discharge Instructions Diet, activity, other medical instructions: Diet: as tolerated Activity: as tolerated Other medical instructions: Please follow up with your discharge instructions for aftercare. - Diagnosis (1) Alcohol dependence with withdrawal, uncomplicated Current Visit: No Status: Chronic - Follow-up Referral Minutes to complete discharge: 15 - AMA Did Patient Leave Against Medical Advice: No
[2020-04-12] MEDS: LIDOCAINE 5% TOPICAL PATCH TP SCH (09:33)
[2020-04-12] MEDS: PRENATAL VITAMINS W/ FOLIC ACID TABLET (FP) PO SCH (09:33)
[2020-04-12] MEDS: hydrOXYzine PAMOATE 25 MG CAPSULE (FP) PO PRN (10:12)
== END 2020-04-12 10:20 | disposition home or self-care (01) | DRG 895 ==
LOC: YASAS 13:12 → Y6N 15:32 → Y3N 03-24 10:37 → Y3W 03-27 11:56
PROVIDERS: ADMIT Allergy & Immunology; ATTEND Allergy & Immunology
PROC: HZ42ZZZ Group Counseling for Substance Abuse Treatment, Cognitive-Behavioral (ICD-10-PCS; principal; 2020-03-22)
DX: F10.20 Alcohol dependence, uncomplicated (principal); F17.211 Nicotine dependence, cigarettes, in remission; D64.9 Anemia, unspecified; I10 Essential (primary) hypertension; R29.6 Repeated falls; Z99.89 Dependence on other enabling machines and devices
CPT/HCPCS: 36415; 80053; 85025; 85027; 86780; 87389; Q0162; U0003